=== PATIENT | male | born 1980 | race Caucasian/White ===

== ENCOUNTER 2018-09-15 11:08 | Day surgery (SDC) | payer OTHER, SELFPAY ==
[2018-09-10 07:36] VITALS: BMI 32.5
[2018-09-15 12:10] VITALS: BP 141/88; PULSE 69; RESP 16; TEMP 36.3; O2SAT 99; BMI 32.5
[2018-09-15] MEDS: LACTATED RINGERS 1,000 ML 100 ML IV (12:20)
--- NOTE | 2018-09-15 13:23 | SUR.OPER ---
Lithotomy on padded OR bed, head on pillow, arms secured on padded arm boards at <90 degrees abduction. Legs secured in padded yellow fins stirrups.
--- NOTE | 2018-09-15 14:00 | PM.PREOP ---
Pre-operative Note Interval Note Pre-op Check: Yes History & Physical Reviewed by Physician Changes: No
[2018-09-15] MEDS: levoFLOXacin 500 MG/100 ML PIGGYBACK 100 MG IV (14:05)
[2018-09-15] MEDS: BUPIVACAINE 0.5% (PF) VIAL 30 ML INJ (14:16)
[2018-09-15] MEDS: LIDOCAINE 1% W/EPI INJ 20 ML INJ (14:17)
[2018-09-15] MEDS: DIBUCAINE 1% OINT 28 GM 1 APPLIC TOP (14:19)
--- NOTE | 2018-09-15 14:23 | SUR.OPER ---
GLASSES TO PACU WITH PATIENT
--- NOTE | 2018-09-15 14:38 | PM.OP.1 ---
Operative Date/Time/Diagnoses Date of procedure: 09/15/18 Time of procedure: 14:38 Pre-op diagnosis: Anal fistula Procedure & Clinicians Procedure: Anal fistula associated with a large anal fissure Same procedure as scheduled: Yes Indications: Painful recurrent infection Surgeon: Pilar Decker Click Yes if Unassisted: Yes Anesthesia Type: General (Dr. Jarquin ) and Local Operative Notes Findings: 1. Mildly hypertrophic internal anal sphincter 2. Large anal fissure at 6:00 a.m. in dorsal lithotomy position. 3. The posterior anal fissure communicates with the skin surface externally approximately 1 cm posterior to the fissure itself. This is directly over the painful nodule in the perianal region. Closure Type: not applicable Specimen(s): none sent Estimated Blood Loss (mL): 5 Procedure in detail: After obtaining informed consent, the patient brought to the operating room and placed in supine position on the operating table. Following successful induction of general endotracheal anesthesia, the patient's legs were placed in Paco stirrups to create dorsal lithotomy position. The perianal region was prepped and draped in the standard surgical fashion. A time-out was held per [facility] protocol. A small self retaining anal retractor was placed in the anal canal. This revealed a 1 cm fissure posteriorly. This was probed with a small hemostat and was seen to communicate directly with the painful nodule the patient had previously identified. A small incision was created directly over this nodule and the 2 things connected. This was external to the anal sphincter muscle. It involved only perianal skin and mucosa. The fistulous tract was then opened widely with cautery. The muscle was exposed underneath. This was irrigated, anesthetized with local anesthetic, and the overlying mucosa was closed with chromic suture. The entire area was again anesthetized with local anesthetic. Multiple large internal/external hemorrhoids were noted but they were not prolapsing and would be classified as grade 1 or 2. The wound was checked for hemostasis and irrigated once again with warm saline solution. A rolled portion of Gelfoam coated with dibucaine ointment was placed in the anal canal. The procedure was concluded. All sponge, needle, and instrument counts were correct at the conclusion of the case. The patient was allowed awaken from anesthesia without difficulty and taken to the postanesthesia care unit in good condition. Complications: none Condition: stable Disposition: PACU Plan for aftercare: 1. Discharge to home 2. Follow up with me in my office in 2 weeks.
[2018-09-15 14:42] VITALS: BP 120/79; PULSE 98; RESP 14; TEMP 36.3; O2SAT 98
--- NOTE | 2018-09-15 14:44 | P.OP_ITS ---
Operative Date/Time/Diagnoses Date of procedure: 09/15/18 Time of procedure: 14:38 Pre-op diagnosis: Anal fistula Procedure & Clinicians Procedure: Anal fistula associated with a large anal fissure Same procedure as scheduled: Yes Indications: Painful recurrent infection Surgeon: Pilar Decker Click Yes if Unassisted: Yes Anesthesia Type: General (Dr. Jarquin ) and Local Operative Notes Findings: 1. Mildly hypertrophic internal anal sphincter 2. Large anal fissure at 6:00 a.m. in dorsal lithotomy position. 3. The posterior anal fissure communicates with the skin surface externally approximately 1 cm posterior to the fissure itself. This is directly over the painful nodule in the perianal region. Closure Type: not applicable Specimen(s): none sent Estimated Blood Loss (mL): 5 Procedure in detail: After obtaining informed consent, the patient brought to the operating room and placed in supine position on the operating table. Following successful induction of general endotracheal anesthesia, the patient' s legs were placed in Paco stirrups to create dorsal lithotomy position. The perianal region was prepped and draped in the standard surgical fashion. A time- out was held per [facility] protocol. A small self retaining anal retractor was placed in the anal canal. This revealed a 1 cm fissure posteriorly. This was probed with a small hemostat and was seen to communicate directly with the painful nodule the patient had previously identified. A small incision was created directly over this nodule and the 2 things connected. This was external to the anal sphincter muscle. It involved only perianal skin and mucosa. The fistulous tract was then opened widely with cautery. The muscle was exposed underneath. This was irrigated, anesthetized with local anesthetic, and the overlying mucosa was closed with chromic suture. The entire area was again anesthetized with local anesthetic. Multiple large internal/external hemorrhoids were noted but they were not prolapsing and would be classified as grade 1 or 2. The wound was checked for hemostasis and irrigated once again with warm saline solution. A rolled portion of Gelfoam coated with dibucaine ointment was placed in the anal canal. The procedure was concluded. All sponge, needle, and instrument counts were correct at the conclusion of the case. The patient was allowed awaken from anesthesia without difficulty and taken to the postanesthesia care unit in good condition. Complications: none Condition: stable Disposition: PACU Plan for aftercare: 1. Discharge to home 2. Follow up with me in my office in 2 weeks.
[2018-09-15 14:47] VITALS: BP 156/86; PULSE 84; RESP 16; TEMP 36.3; O2SAT 98
[2018-09-15 14:52] VITALS: BP 158/102; PULSE 89; RESP 18; TEMP 36.6; O2SAT 98
[2018-09-15 15:00] VITALS: BP 149/91; PULSE 99; RESP 20; TEMP 37; O2SAT 99
== END 2018-09-15 15:25 | disposition home or self-care (01) ==
PROVIDERS: PCP Family Medicine; Visit Provider Surgery
PROC: (CPT 45990; principal; 2018-09-15 13:00)
DX: K60.3 Anal fistula (principal); K60.2 Anal fissure, unspecified
CPT/HCPCS: 46270; J1100; J1956; J2704; J3010

== ENCOUNTER → 2019-08-03 15:00 | Oncology outpatient (ONC) | payer OTHER, SELFPAY ==
[2019-07-06 14:21] VITALS: BP 132/80; PULSE 82; RESP 20; TEMP 36.5; O2SAT 98
[2019-07-06 16:07] LABS: HEMOLYSIS < 15 (0-50); Iron 187 ug/dL (49-181)
[2019-07-06 16:09] LABS: Alanine Aminotransferase 50 IU/L (21-72); Albumin Globulin Ratio 1.6 (1.0-2.8); Alkaline Phosphatase 76 U/L (38-126); Aspartate Aminotransferase 52 IU/L (17-59); Bilirubin Total 1.2 mg/dL (0.2-1.3); Blood Urea Nitrogen 20 mg/dL (9-20); Calcium 9.8 mg/dL (8.4-10.2); Carbon Dioxide 22 mmol/L (22-32); Chloride 98 mmol/L (98-107); Estimated Glomerular Filt Rate > 60.0 mL/min (>60); Globulin 3.1 g/dL (1.7-4.1); Glucose 106 mg/dL (70-100); HEMOLYSIS < 15 (0-50); Potassium 4.8 mmol/L (3.4-5.1); Sodium 138 mmol/L (137-145); Total Protein 8.1 g/dL (6.3-8.2)
[2019-07-06 16:18] LABS: Percent Iron Saturation 67 % (20-50); Total Iron Binding Capacity 278 ug/dL (261-462); Transferrin 268 mg/dL (206-381)
[2019-07-06 16:38] LABS: Thyroid Stimulating Hormone 0.72 uIU/mL (0.47-4.68)
--- NOTE | 2019-07-06 17:25 | ONC.CONS ---
History of Present Illness - Data of Consult Consult date: 07/06/19 Primary Care Provider: Oren Barboza MD - Consult Narrative Narrative: Diagnosis: Elevated ferritin History of present illness: Jaden Douglass is a 38 year old male who is referred for further evaluation of an elevated ferritin. The patient is active duty . He has been generally pretty healthy. He has had some recent symptoms of lightheadedness particularly when exercising. He has undergone cardiac evaluation with no obvious etiology found. Part of the evaluation included a ferritin which is been elevated. On a most recent check in April it was 753. Iron was 95 with a TIBC of 325 and a sat of 29%. He had mild elevation in his AST at 54 at that time. ALT was normal at 69. His bilirubin was 1.1. His white count was 5.3 hemoglobin 13.5 hematocrit 39.6 and platelets were 186,000. He did have HF E testing done. 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 He was scheduled for cardiac MRI but was unable to lie still in the machine because of claustrophobia. He has no known history of liver disease but has been a heavy drinker in the past. He currently has cut back on his alcohol consumption but does still drink occasionally. He has no known history of hepatitis. He has not had any documented cardiac disease. There has been no history of diabetes arthritis or hypothyroidism or hypogonadism. He has never required a blood transfusion. He had been a blood donor but has not donated in the last 5-10 years. He has not been taking any oral iron. There is no family history of hemochromatosis. His past medical history is otherwise notable for gout, acid reflux, hypertension and hyperlipidemia. He did have surgery about a year ago for rectal fistula or abscess. He has also recently been diagnosed with sleep apnea. Family history is negative for hemochromatosis. Social history: He is . He disease active duty . 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 He does not have any exposure to lead or organic solvents. Does not smoke but does drink some alcohol. He has some anxiety relating to his upcoming senior care from the in about a year. CC: Anders Tejada MD Home Medications and Allergies Home Medications Medication Instructions Recorded Confirmed Type amlodipine 2.5 mg tablet 5 mg PO DAILY 09/09/18 07/06/19 History atorvastatin 20 mg PO DAILY 09/09/18 07/06/19 History lisinopril 40 mg PO DAILY 09/09/18 07/06/19 History metoprolol tartrate 50 mg PO DAILY 09/09/18 07/06/19 History ranitidine HCl 150 mg PO BID 09/09/18 07/06/19 History Allergies Allergy/AdvReac Type Severity Reaction Status Date / Time No Known Drug Allergies Allergy Verified 11/16/18 09:31 Medical History - Medical, Surgical, Family History Medical History: Medical History (Last Reviewed 01/20/19 @ 17:27 by Pilar Decker MD) Anal lesion Gout HTN (hypertension) Surgical History: Surgical History (Last Reviewed 01/20/19 @ 17:27 by Pilar Decker MD) History of appendectomy - Social History Smoking Status: Never smoker Review of Systems Constitutional: able to conduct usual activities Ears, nose, mouth, throat: lightheadedness Cardiovascular: no chest pain, no palpitations Hematologic/Lymphatic: no enlarged lymph nodes Exam Vital signs: Vital Signs Temp Pulse Resp BP Pulse Ox 07/06/19 14:21 97.7 F 82 20 132/80 98 Intake and Output 07/06/19 07/06/19 07/06/19 07:59 15:59 23:59 Other: Weight 114 kg Patient Weight 07/06/19 23:59 Weight 114 kg - Constitutional positive no acute distress, positive average body habitus - Routine HEENT Exam Head: Present: normocephalic, atraumatic Eye: Present: EOMI, PERRL. Absent: conjunctival icterus, scleral injection ENT: Present: mucous membranes moist, oropharynx clear, dentition normal - Routine Neck Exam Present: supple. Absent: lymphadenopathy, thyromegaly - Routine Chest/Breast/Axilla Exam Axillae: Absent: lymphadenopathy - Routine Respiratory Exam Present: Clear to auscultation bilaterally. Absent: rales, wheezes - Routine Cardiovascular Exam Present: RRR, S1, S2. Absent: murmur - Routine Abdominal Exam Present: soft, normoactive bowel sounds. Absent: tenderness, mass Comments: The liver edge is palpable 3-4 finger breaths below the costal margin. - Routine Extremities Exam Absent: cyanosis, clubbing, edema - Routine Back/Spine Exam Back/Spine: Absent: vertebral tenderness - Routine Skin Exam Present: intact. Absent: petechiae, rash - Routine Neurological Exam Present: alert, oriented X3 - Routine Psychiatric Exam Present: normal affect, normal thought process Results - Labs Laboratory Last Values Sodium 138 mmol/L (137-145) 07/06/19 15:18 Potassium 4.8 mmol/L (3.4-5.1) 07/06/19 15:18 Chloride 98 mmol/L (98-107) 07/06/19 15:18 Carbon Dioxide 22 mmol/L (22-32) 07/06/19 15:18 BUN 20 mg/dL (9-20) 07/06/19 15:18 Creatinine 1.00 mg/dL (0.66-1.25) 07/06/19 15:18 Estimated GFR > 60.0 mL/min (>60) 07/06/19 15:18 BUN/Creatinine Ratio 20.0 (6-22) 07/06/19 15:18 Glucose 106 mg/dL (70-100) H 07/06/19 15:18 Calcium 9.8 mg/dL (8.4-10.2) 07/06/19 15:18 Iron 187 ug/dL (49-181) H 07/06/19 15:18 TIBC 278 ug/dL (261-462) 07/06/19 15:18 % Saturation 67 % (20-50) H 07/06/19 15:18 Transferrin 268 mg/dL (206-381) 07/06/19 15:18 Ferritin 743.0 ng/mL (17.9-464) H 07/06/19 15:18 Total Bilirubin 1.2 mg/dL (0.2-1.3) 07/06/19 15:18 AST 52 IU/L (17-59) 07/06/19 15:18 ALT 50 IU/L (21-72) 07/06/19 15:18 Alkaline Phosphatase 76 U/L (38-126) 07/06/19 15:18 Total Protein 8.1 g/dL (6.3-8.2) 07/06/19 15:18 Albumin 5.0 g/dL (3.5-5.0) 07/06/19 15:18 Globulin 3.1 g/dL (1.7-4.1) 07/06/19 15:18 Albumin/Globulin Ratio 1.6 (1.0-2.8) 07/06/19 15:18 TSH 0.72 uIU/mL (0.47-4.68) 07/06/19 15:18 Testosterone Level 253.0 ng/dL (132-813) 07/06/19 15:18 Assessment and Plan (1) Abnormal finding Current visit: Yes Status: Acute This is a 38-year-old man with an elevated ferritin but heterozygous HFE mutation. It is very unusual for heterozygous HFE carriers to develop clinically evident iron overload. In addition, at least on average there iron levels are similar to wild-type HFE patients. I think it is possible that he may have iron overload from nonHFE hemochromatosis. Alternatively, he could have an elevated ferritin in the absence of iron overload for other reasons. This typically would include inflammation or liver disease. Hepatitis can be associated with an elevated ferritin. Alcoholic liver disease and nonalcoholic steatohepatitis also have been associated. I think the next step would be to evaluate for iron overload. This could be done either with MRI or liver biopsy. It has been difficult for him to hold still in the MRI machine because of claustrophobia. I think it may be reasonable therefore to refer him to a web operations lead for further evaluation and consideration of liver biopsy. If the patient does have iron overload confirmed, he should start on a phlebotomy program regardless of the cause. If there is no iron overload, then I think treatment directed at his underlying liver disease of present would be indicated. If no underlying disease is found, then on only ongoing observation.
[2019-08-03 15:46] VITALS: BP 113/66; PULSE 79; RESP 18; TEMP 36.8; O2SAT 98
--- NOTE | 2019-08-03 16:21 | P.PNONC_ITS ---
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 He was seen here initially about a month ago. He was found to have an elevated serum ferritin. His genetic testing for H at fee revealed that he was a carrier for this C282Y mutation. He was referred for cardiac MRI to evaluate for iron load but was unable to lie still for the machine despite premedication with Valium. Since his last visit here, he has been feeling generally well and has no specific complaints. He denies any unusual bleeding or bruising. No fevers chills or sweats. Appetite and energy level have been stable. He has not had any new aches or pains. He denies any other changes in his health both. His past medical history is otherwise notable for gout, acid reflux, hypertension and hyperlipidemia. He did have surgery about a year ago for rectal fistula or abscess. He has also recently been diagnosed with sleep apnea. Family history is negative for hemochromatosis. - Patient Self-Reported Symptoms SR Constitution: Weight loss/gain, Fatigue/Malaise SR ears, nose, mouth, throat issues: Ears ringing, Hoarseness SR Cardiovascular issues: Dizzy/lightheaded SR Skin issues: Nail changes SR Genitourinary issues: Frequent urination, Change in stream SR Musculoskeletal issues: Joint pain or swelling, Muscle pain or cramps, Cold hands or feet SR Neuro issues: Lightheaded/dizzy, Numbness or tingling SR Hematologic issues: Slow healing, Bleeding/bruising Home Medications and Allergies Home Medications Medication Instructions Recorded Confirmed Type amlodipine 2.5 mg tablet 5 mg PO DAILY 09/09/18 07/06/19 History atorvastatin 20 mg PO DAILY 09/09/18 07/06/19 History lisinopril 40 mg PO DAILY 09/09/18 07/06/19 History metoprolol tartrate 50 mg PO DAILY 09/09/18 07/06/19 History ranitidine HCl 150 mg PO BID 09/09/18 07/06/19 History Allergies Allergy/AdvReac Type Severity Reaction Status Date / Time No Known Drug Allergies Allergy Verified 11/16/18 09:31 Exam Vital signs: Vital Signs Temp Pulse Resp BP Pulse Ox 08/03/19 15:46 98.3 F 79 18 113/66 98 Intake and Output 08/03/19 08/03/19 08/03/19 07:59 15:59 23:59 Other: Weight 114 kg Patient Weight 08/03/19 23:59 Weight 114 kg - Constitutional positive no acute distress, positive average body habitus - Routine HEENT Exam Head: Present: normocephalic, atraumatic Eye: Present: EOMI, PERRL. Absent: conjunctival icterus, scleral injection ENT: Present: mucous membranes moist, oropharynx clear - Routine Neck Exam Present: supple. Absent: lymphadenopathy, thyromegaly - Routine Respiratory Exam Present: Clear to auscultation bilaterally. Absent: rales, wheezes - Routine Cardiovascular Exam Present: RRR, S1, S2. Absent: murmur - Routine Abdominal Exam Present: soft, normoactive bowel sounds. Absent: tenderness, organomegaly, mass - Routine Extremities Exam Absent: cyanosis, clubbing, edema - Routine Back/Spine Exam Back/Spine: Absent: vertebral tenderness - Routine Skin Exam Present: intact. Absent: petechiae, rash - Routine Neurological Exam Present: alert, oriented X3 - Routine Psychiatric Exam Present: normal affect, normal thought process Results - Labs Laboratory Last Values Sodium 138 mmol/L (137-145) 07/06/19 15:18 Potassium 4.8 mmol/L (3.4-5.1) 07/06/19 15:18 Chloride 98 mmol/L (98-107) 07/06/19 15:18 Carbon Dioxide 22 mmol/L (22-32) 07/06/19 15:18 BUN 20 mg/dL (9-20) 07/06/19 15:18 Creatinine 1.00 mg/dL (0.66-1.25) 07/06/19 15:18 Estimated GFR > 60.0 mL/min (>60) 07/06/19 15:18 BUN/Creatinine Ratio 20.0 (6-22) 07/06/19 15:18 Glucose 106 mg/dL (70-100) H 07/06/19 15:18 Calcium 9.8 mg/dL (8.4-10.2) 07/06/19 15:18 Iron 187 ug/dL (49-181) H 07/06/19 15:18 TIBC 278 ug/dL (261-462) 07/06/19 15:18 % Saturation 67 % (20-50) H 07/06/19 15:18 Transferrin 268 mg/dL (206-381) 07/06/19 15:18 Ferritin 743.0 ng/mL (17.9-464) H 07/06/19 15:18 Total Bilirubin 1.2 mg/dL (0.2-1.3) 07/06/19 15:18 AST 52 IU/L (17-59) 07/06/19 15:18 ALT 50 IU/L (21-72) 07/06/19 15:18 Alkaline Phosphatase 76 U/L (38-126) 07/06/19 15:18 Total Protein 8.1 g/dL (6.3-8.2) 07/06/19 15:18 Albumin 5.0 g/dL (3.5-5.0) 07/06/19 15:18 Globulin 3.1 g/dL (1.7-4.1) 07/06/19 15:18 Albumin/Globulin Ratio 1.6 (1.0-2.8) 07/06/19 15:18 TSH 0.72 uIU/mL (0.47-4.68) 07/06/19 15:18 Testosterone Level 253.0 ng/dL (132-813) 07/06/19 15:18 Assessment and Plan (1) Abnormal finding Current visit: Yes Status: Acute This is a 38-year-old man with an elevated ferritin but heterozygous HFE mutation. It is very unusual for heterozygous HFE carriers to develop clinically evident iron overload. In addition, at least on average there iron levels are similar to wild-type HFE patients. I think it is possible that he may have iron overload from nonHFE hemochromatosis. Alternatively, he could have an elevated ferritin in the absence of iron overload for other reasons. This typically would include inflammation or liver disease. Hepatitis can be associated with an elevated ferritin. Alcoholic liver disease and nonalcoholic steatohepatitis also have been associated. I think the next step would be to evaluate for iron overload. This could be done either with MRI or liver biopsy. It has been difficult for him to hold still in the MRI machine because of claustrophobia. I think it may be reasonable therefore to refer him to a inspection engineer for further evaluation and consideration of liver biopsy. If the patient does have iron overload confirmed, he should start on a phlebotomy program regardless of the cause. If there is no iron overload, then I think treatment directed at his underlying liver disease of present would be indicated. If no underlying disease is found, then on only ongoing observation. I did make a referral to Gastroenterology for him. Will have him return to clinic here after that is complete.
--- NOTE | 2019-08-08 14:55 | ONC.SCHED ---
Left ms. for patient letting him know I submitted the auth through for him to see a GI doctor. I mentioned it might help for him to give his insurance or primary doctor a call.
== END ==
PROVIDERS: PCP Family Medicine
DX: R79.89 Other specified abnormal findings of blood chemistry (principal); K21.9 Gastro-esophageal reflux disease without esophagitis; I10 Essential (primary) hypertension; E78.5 Hyperlipidemia, unspecified; G47.30 Sleep apnea, unspecified; Z14.8 Genetic carrier of other disease
CPT/HCPCS: 36415; 80053; 82728; 83540; 83550; 84403; 84443; 99205; 99214; 99215

== ENCOUNTER → 2020-06-30 08:27 | Outpatient (CLI) | payer OTHER, SELFPAY ==
[2020-07-01 19:05] LABS: COVID19 Sendout Not Detected (Not Detect)
== END ==
PROVIDERS: PCP Family Medicine; Visit Provider Nurse Practitioner
DX: Z11.59 Encounter for screening for other viral diseases (principal)
CPT/HCPCS: 87635

== ENCOUNTER 2020-07-03 11:10 | Day surgery (SDC) | payer OTHER, SELFPAY ==
[2020-06-28 15:20] VITALS: BMI 33.8
[2020-07-03] VITALS (7 sets, daily range): BP systolic 112–142; BP diastolic 51–88; PULSE 68–87; RESP 11–20; TEMP 36.6–36.9; O2SAT 95–98; BMI 33.8
[2020-07-03] MEDS: LACTATED RINGERS 1,000 ML 42 ML IV (11:51)
--- NOTE | 2020-07-03 13:09 | PM.PREOP ---
Pre-operative Note COVID-19 COVID-19 status: Negative Interval Note History & Physical reviewed/Exam performed by Physician: Yes Changes to H&P: No
--- NOTE | 2020-07-03 13:41 | SUR.OPER ---
Lithotomy on padded OR bed, head on pillow, arms secured on padded arm boards at <90 degrees abduction. Legs secured in padded yellow fins stirrups.
[2020-07-03] MEDS: BUPIVACAINE 0.25% (PF) VIAL 30 ML INJ (13:46)
--- NOTE | 2020-07-03 14:09 | P.OP_ITS ---
Operative Date/Time/Diagnoses Date of procedure: 07/03/20 Time of procedure: 14:09 Pre-op diagnosis: intersphincteric fistula Post-op diagnosis: same Procedure & Clinicians Procedure: fistulotomy Same procedure as scheduled: Yes Indications: 39M had a prior fistulotomy and perianal abscess presented with chronic perianal drainange. T Surgeon: Ant Winter Click Yes if Unassisted: Yes Anesthesia Type: General Operative Notes Findings: posterior perianal abscess and interspincteric fistula Specimen(s): none sent Estimated Blood Loss (mL): 10 Procedure in detail: The patient was brought to the operating room and placed supine on the table. Bilateral lower extremity compression devices were saqib lied. He was intubated with an LMA. Time-out was performed. He was placed lithotomy and appropriately padded. He was prepped and draped in usual fashion. A rectal block was performed by injecting 20 ml of 0.25% bupivicaine in the interspincteric groove. An examination was performed that demonstrated a posterior chronic perianal abscess at the 6 o clock position in lithotomy in the perianal skin. Using the lacrimal duct probe it was introduced into the abscess cavity which was in the interspincteric groove and it tracked directly into the anal canal an exited at approximately the dentate line. I performed a simple fistulomy using the Bovie to divide the tissue superficial to the lacrimal probe. Hemostasis was achieved. He emerged from anesthesia and was transferred to the recovery room in stable condition. Complications: none Post-operative Condition: stable Disposition: same day surgery
[2020-07-03] MEDS: OXYCODONE IR 5 MG TABLET PO (14:22)
== END 2020-07-03 15:00 | disposition home or self-care (01) ==
PROVIDERS: Referring Provider Surgery; Visit Provider Surgery
PROC: (CPT 45990; principal; 2020-07-03 12:45)
DX: K61.4 Intrasphincteric abscess (principal); K21.9 Gastro-esophageal reflux disease without esophagitis; I10 Essential (primary) hypertension; E78.00 Pure hypercholesterolemia, unspecified
CPT/HCPCS: 46275; J1100; J2250; J2405; J2704; J3010

== ENCOUNTER → 2021-10-30 14:17 | Outpatient (CLI) | payer OTHER, SELFPAY ==
--- NOTE | 2021-10-30 14:19 | DI.ECHO.S_ITS ---
[facility] +---------+ : : [address] : [place] [address] : : : : [id number] : : : : Phone: [phone] Echocardiogram Report + + :Name: SAGAR ORTIZ Study Date: 10/30/2021 Height: 71 in : :[facility] ReadingLocation: Weight: 230 lb : : Gender: Male BSA: 2.2 m2 : :: 1980 Age: 41 yrs BP: 160/92 mmHg: :Reason For Study: GENERAL ADULT MEDICAL EXAMINATION : :Ordering Physician: HOMERO, : :TAMRA Performed By: Latisha Sanabria : :Referring: TAMRA VALENTIN : + + Interpretation Summary The ejection fraction is estimated to be 55-60%. There are no obvious focal wall motion abnormalities noted but poor endocardial definition reduces the sensitivity for the detection of such. There is mild tricuspid regurgitation. The right ventricular systolic pressure is estimated to be at least 37 mmHg based on an estimated right atrial pressure of 3 mm Hg. Procedure: A two-dimensional transthoracic echocardiogram with color flow and Doppler was performed. The study quality was technically adequate. There is no prior echocardiogram noted for this patient. The patient was in sinus rhythm with heart rates between 73-89 bpm during the exam. Left Ventricle: The left ventricle is normal in size. There is mild concentric left ventricular hypertrophy. The ejection fraction is estimated to be 55-60%. There are no obvious focal wall motion abnormalities noted but poor endocardial definition reduces the sensitivity for the detection of such. Diastolic parameters suggest a pseudonormalization pattern, consistent with probable elevated filling pressures. Right Ventricle: The right ventricle is mildly dilated. The right ventricular systolic function is normal. Atria: The left atrium is severely dilated. Right atrial size is normal. There is no Doppler evidence for an interatrial shunt. Mitral Valve: The mitral valve is normal in structure and function. There is mild mitral annular calcification. There is trace mitral regurgitation. Aortic Valve: The aortic valve is trileaflet. The aortic valve opens well. There is no aortic valve stenosis. There is no aortic regurgitation. Tricuspid Valve: The tricuspid valve is normal in structure and function. There is mild tricuspid regurgitation. The right ventricular systolic pressure is estimated to be at least 37 mmHg based on an estimated right atrial pressure of 3 mm Hg. Pulmonic Valve: The pulmonic valve leaflets are thin and pliable; valve motion is normal. There is no pulmonic valvular regurgitation. Great Vessels: The aortic root is normal size. The ascending aorta is mildly enlarged. The IVC is of normal diameter and collapses greater than 50% with a sniff. This suggests a low right atrial pressure of 3 mm Hg. Pericardium/ Pleura There is no pericardial effusion. There is no pleural effusion. MMode/2D Measurements & Calculations LVIDd: 4.5 cm LVOT diam: 2.5 cm LVIDs: 3.1 cm Ao root diam: 3.3 cm FS: 30.8 % asc Aorta Diam: 3.8 cm IVSd: 1.3 cm Ao Arch Diam (Prox Trans): 2.6 cm LVPWd: 1.1 cm LV mittal. diameter/BSA (cm/m^2): 2.0 LV sys. diameter/BSA (cm/m^2): 1.4 LA A2 area: 27.1 cm2 RA long axis: 4.9 cm LA A4 area: 27.9 cm2 RA area: 17.1 cm2 LA length (vol): 5.9 cm RA vol: 51.0 ml LA vol: 107.8 ml RA : 22.8 ml/m2 LA vol index: 48.2 ml/m2 IVC diam: 1.8 cm RVD1 (basal): 4.5 cm TAPSE: 2.5 cm Doppler Measurements & Calculations Ao V2 max: 138.8 cm/sec LVOT Max Diego: 112.6 cm/sec Ao V2 mean: 88.0 cm/sec LV V1 max P.1 mmHg Ao max P.7 mmHg LV V1 VTI: 22.5 cm Ao mean P.6 mmHg RON(I,D): 4.1 cm2 Ao V2 VTI: 25.9 cm RON(V,D): 3.9 cm2 sev ratio: 0.87 RON indexed to BSA (cm^2/m^2): 1.8 MV E max diego: 93.7 cm/sec TR max diego: 289.2 cm/sec MV A max diego: 51.6 cm/sec TR max P.5 mmHg MV E/A: 1.8 PA V2 max: 118.3 cm/sec Med Peak E' Diego: 11.0 cm/sec PA V2 mean: 82.3 cm/sec E/E' med: 8.5 PA mean P.0 mmHg Lat Peak E' Diego: 17.1 cm/sec E/E' lat: 5.5 E/e' average: 7.0 MV dec time: 0.21 sec SV(LVOT): 106.8 ml Reading Physician:04:41 PM
== END ==
PROVIDERS: PCP Student in an Organized Health Care Education/Training Program; Referring Provider Physician Assistant; Visit Provider Physician Assistant
DX: I07.1 Rheumatic tricuspid insufficiency (principal); I77.89 Other specified disorders of arteries and arterioles
CPT/HCPCS: 93306

== ENCOUNTER 2022-05-16 10:21 | Emergency (ER) | payer OTHER, SELFPAY ==
--- NOTE | 2022-05-16 | DI.US.S_ITS ---
PROCEDURE: US ABDOMEN COMPLETE INDICATIONS: elevated bili and new renal failure TECHNIQUE: Real-time scanning was performed of the abdominal and retroperitoneal organs, with image documentation. COMPARISON: None. FINDINGS: Liver: The liver measures 19 cm in length and demonstrates increased echogenicity throughout. Gallbladder: The gallbladder wall measures 1.7 mm in diameter. No stones, sludge, pericholecystic fluid, or sonographic Bella sign. Biliary ducts: Intrahepatic bile ducts are non-dilated. Extrahepatic bile duct caliber measures 5.3 mm. Normal is 6-7 mm or less in diameter, or 10 mm or less post-cholecystectomy. Pancreas: Visualized portions of the pancreas are sonographically normal. Spleen: Spleen is normal in size and homogeneous in echotexture. Kidneys: Kidneys are normal in size and echotexture. Right kidney measures 12.4 cm long; left kidney measures 12.6 cm long. No hydronephrosis or nephrolithiasis. No solid masses. Aorta: Visualized aorta is normal in caliber at less than 3 cm. The distal aorta is not visualized due to bowel gas. Iliacs: The iliacs are not visualized due to bowel gas. IVC: Intrahepatic inferior vena cava is patent. Miscellaneous: No free abdominal fluid. IMPRESSION: 1. Increased hepatic echogenicity noted likely related to fatty infiltration of the liver but other sources of hepatocellular disease cannot be excluded. 2. No cholelithiasis or findings to suggest choledocholithiasis or acute cholecystitis. Dictated by: Heather Banda M.D. on 05/16/2022 at 15:21 Approved by: Heather Banda M.D. on 05/16/2022 at 15:22
[2022-05-16 10:25] VITALS: BP 122/71; PULSE 84; RESP 14; TEMP 35.7; O2SAT 99; BMI 36.2
--- NOTE | 2022-05-16 11:44 | ED.ALCOHOL ---
HPI - Alcohol General Chief Complaint: Toxicology Problem Stated Complaint: ETOH withdrawal Time Seen by Provider: 05/16/22 11:27 Source: patient Mode of arrival: Ambulatory History of Present Illness HPI narrative: Patient is a 41-year-old male who has a history of hypertension hyperlipidemia and alcohol abuse. He states he has ongoing alcohol issues for 20 years. He has been sober intermittently. The last sober November for 4-6 weeks. He was given prescription for Ativan and Zofran as outpatient. He says he drinks large amounts of hard alcohol. His last drink about 48 hours ago. He has previously had alcohol withdrawal seizures. He feels very shaky and anxious but is not tachycardic. He is feeling slightly nauseous but okay. He is not interested in going to detox today. He would just like medications so he can detox at home. He has tried outpatient support group such as [facility] without any 6 he denies any other drug use. Related Data Home Medications Medication Instructions Recorded Confirmed amlodipine 2.5 mg tablet 5 mg PO DAILY 09/09/18 08/01/20 atorvastatin 20 mg PO DAILY 09/09/18 08/01/20 lisinopril 40 mg PO DAILY 09/09/18 08/01/20 metoprolol tartrate 50 mg PO DAILY 09/09/18 08/01/20 allopurinol 100 mg tablet 300 mg PO DAILY 06/20/20 08/01/20 Previous Rx's Medication Instructions Recorded docusate sodium 100 mg capsule 100 mg PO BID #40 caps 07/03/20 (Colace) oxycodone 5 mg tablet 5 mg PO Q6H PRN pain #30 tabs 07/03/20 lorazepam 1 mg tablet (Ativan) 1 mg PO TID PRN alcohol withdrawal 05/16/22 #12 tabs Allergies Allergy/AdvReac Type Severity Reaction Status Date / Time No Known Drug Allergies Allergy Verified 05/16/22 10:25 Review of Systems Review of Systems Narrative: GENERAL: Denies chills, fatigue, malaise, fever, sweats, travel HEENT: Denies sinus pain, ear pain, sore throat, difficulty swallowing, neck pain RESPIRATORY: Denies dyspnea, cough, wheezing, hemoptysis, sputum. CARDIOVASCULAR: Denies chest pain, palpitations, orthopnea, edema GASTROINTESTINAL: Denies nausea, vomiting, abdominal pain, diarrhea, constipation, melena. : Denies dysuria, frequency, incontinence, hematuria, urinary retention, flank pain. MUSCULOSKELETAL: Denies weakness, joint pain, or bony pain SKIN: No rash, no erythema, no pruritus NEUROLOGIC: Denies weakness, dizziness, headache, numbness, change in speech, confusion PSYCHIATRIC: See HPI 12 point review of systems is negative except for those stated above and HPI Patient History Medical History Anal lesion Elevated ferritin GERD (gastroesophageal reflux disease) Gout HTN (hypertension) Hypercholesteremia Sleep apnea Surgical History History of appendectomy History of surgery (09/15/18) Hx of wisdom tooth extraction Family History Mother Hypertension Social History marital status: household members: spouse occupational status: employed Smoking Status: Never smoker alcohol intake: current substance use type: does not use Smoking Status: Never smoker alcohol intake frequency: 3 or more drinks per day Alcohol type: hard liquor Substance Use Type: does not use Exam Initial Vital Signs Initial Vital Signs: Vital Signs Temperature 96.2 F L 05/16/22 10:25 Pulse Rate 84 05/16/22 10:25 Respiratory Rate 14 05/16/22 10:25 Blood Pressure 122/71 05/16/22 10:25 Pulse Oximetry 99 05/16/22 10:25 Oxygen Delivery Method 05/16/22 10:25 GENERAL: Alert pleasant 41-year-old male and in no acute distress. HEENT: Head atraumatic,EOMI, pupils reactive, face symmetric, moist mucous membranes CARDIOVASCULAR: Regular rate and rhythm without murmurs, rubs or gallops. RESPIRATORY: Breath sounds equal bilaterally, no wheezes rales or rhonchi. ABDOMEN: Soft, nontender. Normoactive bowel sounds all 4 quadrants. No guarding or rebound. EXTREMITIES: Normal range of motion, no clubbing or edema. Neurovascularly intact NEUROLOGICAL: Alert and oriented x4.Normal gait and speech. No deficits, minimal resting tremor SKIN: Warm, dry, no laceration, no petechiae, no rashes or lesions. Course Orders Ordered: ED Orders 05/16/22 11:00 Urine Drug Screen, Rapid Stat Urine Microscopic Stat 05/16/22 11:25 Acetaminophen Stat Complete Blood Count AUTO DIFF Stat Comprehensive Metabolic Panel Stat Ethanol (ETOH) Stat Salicylate Stat Thyroid Stimulating Hormone Stat 05/16/22 12:07 Consult to [facility] - Waist Pleater Stat Discontinued Medications Diazepam (Diazepam 10 Mg/2 Ml Syringe) 2 mg IV NOW ONE Stop: 05/16/22 14:16 Last Admin: 05/16/22 14:35 Dose: 2 mg Documented By: AT Lorazepam (Lorazepam 2 Mg/Ml Inj) 1 mg IV NOW ONE Stop: 05/16/22 13:34 Last Admin: 05/16/22 13:47 Dose: Not Given Documented By: AT Phenobarbital (Phenobarbital 65 Mg/Ml Vial) 260 mg IV NOW ONE Stop: 05/16/22 11:46 Last Admin: 05/16/22 11:51 Dose: 260 mg Documented By: KB Vital Signs Vital signs: Vital Signs - 8 hr 05/16/22 14:37 05/16/22 16:07 Pulse Rate 65 70 Respiratory Rate 20 20 Blood Pressure 121/61 123/70 Pulse Oximetry 99 99 Oxygen Delivery Method Room Air Room Air MDM - Alcohol Lab Data Result diagrams: 05/16/22 11:25 05/16/22 11:25 Labs: Lab Results 05/16/22 05/16/22 05/16/22 Range/Units 11:00 11:00 11:25 WBC 3.9 L (4.5-11.0) X10^3/uL RBC 2.79 L (4.5-5.9) X10^6/uL Hgb 9.5 L (13.5-17.5) g/dL Hct 27.6 L (41-53) % MCV 98.7 (80-100) fL MCH 33.9 (26-34) PG MCHC 34.3 (30-36) % RDW 14.2 (11.6-14.8) % Plt Count 83 L (150-400) X10^3/uL Neut % (Auto) 61.0 (50-75) % Lymph % (Auto) 26.2 (25-40) % Rich % (Auto) 11.2 (3-14) % Eos % (Auto) 1.2 L (2-4) % Baso % (Auto) 0.4 (0-2) % Neut # (Auto) 2400 (2060-1125) /uL Lymph # (Auto) 1000 L (3114-4802) /uL Rich # (Auto) 400 (0-900) /uL Eos # (Auto) 0 (0-450) /uL Baso # (Auto) 0 (0-100) /uL Sodium (137-145) mmol/L Potassium (3.4-5.1) mmol/L Chloride (98-107) mmol/L Carbon Dioxide (22-32) mmol/L BUN (9-20) mg/dL Creatinine (0.66-1.25) mg/dL Estimated GFR (>60) mL/min BUN/Creatinine Ratio (6-22) Glucose (70-100) mg/dL Calcium (8.4-10.2) mg/dL Total Bilirubin (0.2-1.3) mg/dL AST (17-59) IU/L ALT (<50) IU/L Alkaline Phosphatase (38-126) U/L Total Protein (6.3-8.2) g/dL Albumin (3.5-5.0) g/dL Globulin (1.7-4.1) g/dL Albumin/Globulin Ratio (1.0-2.8) TSH (0.47-4.68) uIU/mL Free T4 Urine RBC None seen (0-5/HPF) Urine WBC None seen (0-5/HPF) Ur Squamous Epith Cells 1-5 /hpf (0-5/HPF) Urine Bacteria None seen (None) Ur Culture Indicated? Cult not indicated Salicylates (<20) mg/dL U Opiates 300ng/mL cut Negative (Negative) Ur Oxycodone Screen Negative (Negative) Urine Methadone Screen Negative (Negative) Acetaminophen (10-30) ug/mL Ur Barbiturates Screen Negative (Negative) U Tricyclic Antidepress Negative (Negative) Ur Phencyclidine Scrn Negative (Negative) Ur Amphetamines Screen Negative (Negative) U Methamphetamines Scrn Negative (Negative) Ur MDMA Scrn (Ecstasy) Negative (Negative) U Benzodiazepines Scrn Positive H (Negative) Urine Cocaine Screen Negative (Negative) U Marijuana (THC) Screen Negative (Negative) Ethyl Alcohol ( - 10) mg/dL 05/16/22 05/16/22 Range/Units 11:25 11:25 WBC (4.5-11.0) X10^3/uL RBC (4.5-5.9) X10^6/uL Hgb (13.5-17.5) g/dL Hct (41-53) % MCV (80-100) fL MCH (26-34) PG MCHC (30-36) % RDW (11.6-14.8) % Plt Count (150-400) X10^3/uL Neut % (Auto) (50-75) % Lymph % (Auto) (25-40) % Rich % (Auto) (3-14) % Eos % (Auto) (2-4) % Baso % (Auto) (0-2) % Neut # (Auto) (6415-5001) /uL Lymph # (Auto) (4956-0774) /uL Rich # (Auto) (0-900) /uL Eos # (Auto) (0-450) /uL Baso # (Auto) (0-100) /uL Sodium 136 L (137-145) mmol/L Potassium 4.8 (3.4-5.1) mmol/L Chloride 105 (98-107) mmol/L Carbon Dioxide 18 L (22-32) mmol/L BUN 46 H (9-20) mg/dL Creatinine 2.24 H (0.66-1.25) mg/dL Estimated GFR 36 L (>60) mL/min BUN/Creatinine Ratio 20.5 (6-22) Glucose 169 H (70-100) mg/dL Calcium 9.0 (8.4-10.2) mg/dL Total Bilirubin 1.4 H (0.2-1.3) mg/dL AST 150 H (17-59) IU/L ALT 90 H (<50) IU/L Alkaline Phosphatase 59 (38-126) U/L Total Protein 7.4 (6.3-8.2) g/dL Albumin 4.7 (3.5-5.0) g/dL Globulin 2.7 (1.7-4.1) g/dL Albumin/Globulin Ratio 1.7 (1.0-2.8) TSH 1.10 (0.47-4.68) uIU/mL Free T4 Cancelled Urine RBC (0-5/HPF) Urine WBC (0-5/HPF) Ur Squamous Epith Cells (0-5/HPF) Urine Bacteria (None) Ur Culture Indicated? Salicylates < 1.0 (<20) mg/dL U Opiates 300ng/mL cut (Negative) Ur Oxycodone Screen (Negative) Urine Methadone Screen (Negative) Acetaminophen < 10 (10-30) ug/mL Ur Barbiturates Screen (Negative) U Tricyclic Antidepress (Negative) Ur Phencyclidine Scrn (Negative) Ur Amphetamines Screen (Negative) U Methamphetamines Scrn (Negative) Ur MDMA Scrn (Ecstasy) (Negative) U Benzodiazepines Scrn (Negative) Urine Cocaine Screen (Negative) U Marijuana (THC) Screen (Negative) Ethyl Alcohol < 10 ( - 10) mg/dL Urine Dip Bedside Urine Glucose 1000 mg/dl Bedside Urine Bilirubin - Negative Bedside Urine Ketone - Negative Urine Specific [place] 1.025 Bedside Urine Occult Blood - Negative Bedside Urine pH 6.0 Bedside Urine Protein + 30 Bedside Urine Urobilinogen - Negative Bedside Urine Nitrite - Negative Bedside Urine Leukocytes - Negative Esterase Imaging Data US - abdomen: Radiologist's Impressoin: [place] [id number] Ultrasound Report Signed Patient: Jaden Douglass MR#: [id number] : 1980 Acct:[id number] Age/Sex: 41 / M Date of Service: 05/16/22 Loc: ED Accession Number: [id number] ?? Procedure: US abdomen complete Ordering Provider: Rose Titus D.O. PROCEDURE:? US ABDOMEN COMPLETE ? INDICATIONS:? elevated bili and new renal failure ? TECHNIQUE:? Real-time scanning was performed of the abdominal and retroperitoneal organs, with image documentation.? ? COMPARISON:? None. ? FINDINGS:? ? Liver:? The liver measures 19 cm in length and demonstrates increased echogenicity throughout. ? Gallbladder:? The gallbladder wall measures 1.7 mm in diameter. No stones, sludge, pericholecystic fluid, or sonographic Bella sign. ? ? Biliary ducts:? Intrahepatic bile ducts are non-dilated.? Extrahepatic bile duct caliber measures 5.3 mm.? Normal is 6-7 mm or less in diameter, or 10 mm or less post-cholecystectomy.? ? Pancreas:? Visualized portions of the pancreas are sonographically normal.? ? Spleen:? Spleen is normal in size and homogeneous in echotexture.? ? Kidneys:? Kidneys are normal in size and echotexture.? Right kidney measures 12.4 cm long; left kidney measures 12.6 cm long.? No hydronephrosis or nephrolithiasis.? No solid masses.? ? Aorta:? Visualized aorta is normal in caliber at less than 3 cm.? The distal aorta is not visualized due to bowel gas. ? Iliacs:? The iliacs are not visualized due to bowel gas. ? IVC:? Intrahepatic inferior vena cava is patent.? ? Miscellaneous:? No free abdominal fluid.? ? ? IMPRESSION:? ? 1. Increased hepatic echogenicity noted likely related to fatty infiltration of the liver but other sources of hepatocellular disease cannot be excluded.? ? 2. No cholelithiasis or findings to suggest choledocholithiasis or acute cholecystitis. ? Dictated by: Heather Banda M.D. on 05/16/2022 at 15:21 ? ? Approved by: Heather Banda M.D. on 05/16/2022 at 15:22 ? MDM Narrative Medical decision making narrative: The patient is an alcoholic. He is detoxed at home before. Is requesting not to go to detox. He does not meet any sort of involuntary criteria or risk of self-harm. He is found to have some abnormal lab values including bilirubin LFTs and creatinine. Patient states that I had elevated creatinine last time as well but he is unsure what his numbers were. He has absolutely no right upper quadrant pain. He states he did receive much relief from the phenobarbital requesting some more. He has a low CIWA score he certainly does not meet any admission criteria at this time. He has a follow-up appointment with his PCP on May 20. This time nothing further. Sinus rhythm on the monitor CIWA-Ar for Alcohol Withdrawal from [employer] on 05/16/2022 All calculations should be rechecked by clinician prior to use RESULT SUMMARY: 5 points Patients with scores <= typically do not require medication for withdrawal. INPUTS: Nausea/vomiting ?> 1 = Mild nausea and no vomiting Tremor ?> 2 = (More severe symptoms) Paroxysmal sweats ?> 1 = Barely perceptible sweating, palms moist Anxiety ?> 1 = Mildly anxious Agitation ?> 0 = Normal activity Tactile disturbances ?> 0 = None Auditory disturbances ?> 0 = Not present Visual disturbances ?> 0 = Not present Headache/fullness in head ?> 0 = Not Present Orientation/clouding of sensorium ?> 0 = Oriented, can do serial additions Discharge Plan Departure Patient Disposition: Home Clinical Impression: Alcohol withdrawal Instructions: DI for Delirium Tremens Activity Restrictions/Additional Instructions: *You have been diagnosed with alcohol withdrawal *What to do: At this time stop drinking alcohol. Risk of cardiac a arrhythmia which can lead to , risk of his seizure Also please have your blood work rechecked with her primary care provider. Kidney function and liver function were both noted to be elevated *Continue to take medications as directed Ativan 1 mg 3 times a day for 2 days, 1 mg 2 times a day for 2 days, 1 mg once a day for 2 days--> SENT TO [facility] *Follow up with your primary care provider in 2-3 days or call [phone] *Return to ER if you should have a seizure, confusion, symptoms not controlled, passing out her palpitation or any new, worsening or concerning symptoms Prescriptions: New lorazepam [Ativan] 1 mg tablet 1 mg PO TID PRN (Reason: alcohol withdrawal) Qty: 12 0RF Rx Instructions: 1 tablet 3 times a day for 2 days, 1 tablet twice a day for 2 days, 1 tablet once a day for 2 days No Action lisinopril 40 mg PO DAILY amlodipine 2.5 mg tablet 5 mg PO DAILY metoprolol tartrate 50 mg PO DAILY atorvastatin 20 mg PO DAILY allopurinol 100 mg tablet 300 mg PO DAILY docusate sodium [Colace] 100 mg capsule 100 mg PO BID Qty: 40 0RF oxycodone 5 mg tablet 5 mg PO Q6H PRN (Reason: pain) Qty: 30 0RF Referrals: Rayray José DO [Primary Care Provider] - Visit Report Forms: Patient Portal/API
[2022-05-16 11:45] LABS: Add Manual Diff / Slide Review NO; Basophils Absolute Auto 0 /uL (0-100); Basophils Percent Auto 0.4 % (0-2); Eosinophils Absolute Auto 0 /uL (0-450); Eosinophils Percent Auto 1.2 % (2-4); Hematocrit 27.6 % (41-53); Hemoglobin 9.5 g/dL (13.5-17.5); Lymphocytes Absolute Auto 1000 /uL (1100-4500); Lymphocytes Percent Auto 26.2 % (25-40); Mean Corpuscular HGB Conc 34.3 % (30-36); Mean Corpuscular Hemoglobin 33.9 PG (26-34); Mean Corpuscular Volume 98.7 fL (80-100); Monocytes Absolute Auto 400 /uL (0-900); Monocytes Percent Auto 11.2 % (3-14); Neutrophils Absolute Auto 2400 /uL (1500-7000); Platelet Count 83 X10^3/uL (150-400); Red Blood Cell Count 2.79 X10^6/uL (4.5-5.9); Red Cell Distribution Width 14.2 % (11.6-14.8); White Blood Cell Count 3.9 X10^3/uL (4.5-11.0)
[2022-05-16] MEDS: PHENobarbital 65 MG/ML VIAL 260 MG IV (11:51)
[2022-05-16 12:02] LABS: UR Morphine/Opiate cutoff 300 Negative (Negative); Ur Creatinine Normal (Normal); Ur Specific Gravity Normal (Normal); Urine Amphetamines Negative (Negative); Urine Cocaine Negative (Negative); Urine Methamphetamines Negative (Negative); Urine Tetrahydrocannabinol Negative (Negative); Urine pH Normal (Normal)
[2022-05-16 12:03] LABS: Urine Barbiturates Negative (Negative); Urine Benzodiazepines Positive (Negative); Urine MDMA Negative (Negative); Urine Methadone Negative (Negative); Urine Oxycodone Negative (Negative); Urine Phencyclidine Negative (Negative); Urine Tricyclic Antidepressant Negative (Negative)
[2022-05-16 12:04] LABS: Acetaminophen < 10 ug/mL (10-30); Alanine Aminotransferase 90 IU/L (<50); Albumin 4.7 g/dL (3.5-5.0); Albumin Globulin Ratio 1.7 (1.0-2.8); Alkaline Phosphatase 59 U/L (38-126); Aspartate Aminotransferase 150 IU/L (17-59); BUN Creatinine Ratio 20.5 (6-22); Bilirubin Total 1.4 mg/dL (0.2-1.3); Blood Urea Nitrogen 46 mg/dL (9-20); Carbon Dioxide 18 mmol/L (22-32); Chloride 105 mmol/L (98-107); Estimated Glomerular Filt Rate 36 mL/min (>60); Ethanol (ETOH) < 10 mg/dL; Globulin 2.7 g/dL (1.7-4.1); Glucose 169 mg/dL (70-100); HEMOLYSIS < 15 (0-50); Potassium 4.8 mmol/L (3.4-5.1); Salicylate < 1.0 mg/dL (<20); Sodium 136 mmol/L (137-145); Total Protein 7.4 g/dL (6.3-8.2)
[2022-05-16 12:09] LABS: Bacteria Urine None Seen; Culture Indicated Urine Cult Not Indicated; RBC Urine None Seen (0-5/HPF); Squamous Epithelial Cell Urine 1-5 /HPF (0-5/HPF); WBC Urine None Seen (0-5/HPF)
--- NOTE | 2022-05-16 13:12 | CM.SWNOTE ---
DUST BRUSH ASSEMBLER Assessment DUST BRUSH ASSEMBLER - Grinder Assessment DUST BRUSH ASSEMBLER/Grinder Assessment Time Spent with Patient Start date 05/16/22 Visit Start Time 12:20 End date 05/16/22 Visit End Time 12:50 Total time Care Management spent on 30 minutes patient visit-in minutes Mental Health Screening Include Onset, Duration, Intensity Psych. Hx Mental Health and Chemical dx of PTSD and ETOH use Dependency disorder Substance Abuse Screening Include Onset, Duration, Intensity Presenting Problem Patient presents to ED with due to concern for ETOH withdrawals. Patient endorses hx of ETOH use for the last 25 years and states he generally drinks 1/2 of 750mls of vodka a day. Precipitating Event(s) Patient endorses that he is a disabled retired and stopped working in November 2021. Patient Strengths Patient shows insight and would like to stop drinking and address his anxiety. Current Behavioral Health Provider(s) Patient endorses hx of MH Include Facility, Provider, Ph. # counseling to address his PTSD . Family Hx of Behavioral Abuse None reported Rehab Facilities? ((Date(s), Location(s) Patient endorses hx of IOP and ) detox in 2006 via a program. History of Withdrawal? Seizures? Patient endorses hx of nausea, anxiety, vomiting and tremors. Patient endorses hx of seizure in 2019. 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 Patient endorses as support and suggested he come to the ED. School/Work retired [employer], on disability Legal Concerns Legal Matters - Outstanding Issues none reported Mental Status Orientation (Person/Place/Time) A/Ox4 Stated Mood ok Affect (Congruent with Mood?) euthymic, full range, congruent with mood Thought Content - Specify/Describe None reported Obsessions, Delusions, Hallucinations Thought Processes (Ucgxvdn-Zspfxzrq-Qqae coherent Vfnaptkc-Miqtvvha-Kzhizfzqki- Hpywljeeyghyjt-Msuwqzf-Zpjhlmmntstu- Thought Blocking) Speech (Awoobs-Fpst-Nphxqnx-Rapid-Soft- normal Loud-Pressured) Motor (Hmxbyg-Ahuvnaoxk-Ukxt-Other) normal Insight (Dkil-Nhto-Wenr/Limited) good/fair Judgement (Xqgw-Fodn-Pijg/Limited) fair Impulse Control (Adequate-Impaired) adequate Memory (Ssexdhozx-Uojqdy-Wqrwld, intact Impaired-Intact) Concentration (Intact-Impaired) intact Attention (Intact-Impaired) intact Behavior (Appropriate-Inappropriate) appropriate Additional Comment Patient presents as calm, communicative and cooperative. Risk Assessment Suicidal Ideation (Plan) No Homicidal Ideation (Plan) No Intervention Intervention DUST BRUSH ASSEMBLER enters room to meet with patient. Patient presents with and provides consent for her to be present in room. Patient endorses 25 year hx of ETOH use. Patient endorses almost daily use of about half a 750ml bottle of vodka. Patient endorses hx of AA, IOP and detox and found it to be unhelpful. Patient endorses his last drink was last evening at 2100 , patient's toxicology screen is negative for ETOH. Patient endorses increase in ETOH use since recent snf from [employer]. Patient endorses he spends his time watching tv and drinking. DUST BRUSH ASSEMBLER discusses identifying hobbies and what patient enjoys doing with his spare time. Patient endorses he used to enjoy being outdoors. Patient endorses that he has an upcoming PCP appt on . Patient endorses interest in anxiety medication, DUST BRUSH ASSEMBLER encourages patient to discuss this recent ED visit and reasons why he thinks anxiety medication will be helpful. Patient indicates agreement and understanding. Patient endorses preference to detox at home when medically clear to do so. DUST BRUSH ASSEMBLER provides patient with IOP and detox local services. It is the opinion of this DUST BRUSH ASSEMBLER that patient is safe to d/c to home when medically clear. DUST BRUSH ASSEMBLER reviews the above with ED provider Dr. Titus who indicates agreement and understanding. Plan RA Plan Patient to d/c to home with when medically clear, patient to f/u with PCP and seek out outpatient resources when ready. Carolynn Deshpande, INTENSIVE CARE SPECIALIST
[2022-05-16] MEDS: diazePAM 10 MG/2 ML SYRINGE 2 MG IV (14:35)
[2022-05-16 14:37] VITALS: BP 121/61; PULSE 65; RESP 20; O2SAT 99
[2022-05-16 16:07] VITALS: BP 123/70; PULSE 70; RESP 20; O2SAT 99
== END 2022-05-16 16:07 | disposition home or self-care (01) ==
PROVIDERS: Emergency Provider Emergency Medicine; PCP Student in an Organized Health Care Education/Training Program
DX: F10.139 Alcohol abuse with withdrawal, unspecified (principal)
CPT/HCPCS: 36415; 76700; 80053; 80305; 80320; 80329; 81003; 81015; 84443; 85025; 96374; 96375; 99284; G0480; J2560; J3360

== ENCOUNTER 2022-09-25 02:39 | Inpatient (IN) | payer OTHER, SELFPAY ==
[2022-09-25] VITALS (28 sets, daily range): BP systolic 115–186; BP diastolic 56–84; PULSE 68–98; RESP 16–27; TEMP 36.7–37.2; O2SAT 76–100; BMI 32.8
--- NOTE | 2022-09-25 02:51 | ED.GIBLEED ---
HPI - GI Bleed <Alex Queen MD - Last Filed: 10/04/22 08:31> General Chief complaint: GI Bleed Stated complaint: Rectal Bleed Time Seen by Provider: 09/25/22 02:46 Mode of arrival: EMS History of Present Illness HPI Narrative: Patient brought in by ambulance from home. Patient has been drinking a lot of alcohol recently. He does drink daily about a 5th of vodka each day. However he is trying to quit. He stopped drinking 2 days ago. Has had shaking and tremors and nausea. No SI or HI. Patient also complains of painful bright red blood per rectum. Patient stated hurts at the rectum but not the abdomen or pelvis. Related Data Home Medications Medication Instructions Recorded Confirmed amlodipine 2.5 mg tablet 5 mg PO DAILY 09/09/18 09/27/22 atorvastatin 20 mg PO DAILY 09/09/18 09/27/22 lisinopril 40 mg PO DAILY 09/09/18 09/27/22 metoprolol tartrate 50 mg PO DAILY 09/09/18 09/27/22 allopurinol 100 mg tablet 300 mg PO DAILY 06/20/20 09/27/22 Previous Rx's Medication Instructions Recorded docusate sodium 100 mg capsule 100 mg PO BID #40 caps 07/03/20 (Colace) oxycodone 5 mg tablet 5 mg PO Q6H PRN pain #30 tabs 07/03/20 folic acid 1 mg tablet 1 mg PO DAILY #30 tabs 09/28/22 magnesium oxide 500 mg capsule 500 mg PO BID #14 caps 09/28/22 multivitamin with folic acid 400 1 tab PO DAILY #30 tabs 09/28/22 mcg tablet (Tab-A-Garima) quetiapine 25 mg tablet 25 mg PO Q4H PRN Anxiety #30 tabs 09/28/22 Allergies Allergy/AdvReac Type Severity Reaction Status Date / Time No Known Drug Allergies Allergy Verified 05/16/22 10:25 Review of Systems <Alex Queen MD - Last Filed: 10/04/22 08:31> Review of Systems Narrative: GENERAL: Denies chills, fatigue, malaise, fever, sweats. HEENT: Denies sinus pain, ear pain, sore throat RESPIRATORY: Denies dyspnea, cough CARDIOVASCULAR: Denies chest pain, palpitations GASTROINTESTINAL: Denies nausea, vomiting, positive rectal bleed abdominal pain : Denies dysuria, frequency, hematuria MUSCULOSKELETAL: denies muscle or nikhil ny pain SKIN: Denies rash, skin lesions NEUROLOGIC: Denies weakness, numbness ROS Unobtainable: All systems reviewed & are unremarkable except as noted in HPI and below Patient History <Alex Queen MD - Last Filed: 10/04/22 08:31> Medical History Anal lesion Elevated ferritin GERD (gastroesophageal reflux disease) Gout HTN (hypertension) Hypercholesteremia Sleep apnea Surgical History History of appendectomy History of surgery (09/15/18) Hx of wisdom tooth extraction Family History Mother Hypertension Social History marital status: household members: none occupational status: employed Smoking Status: Never smoker alcohol intake: current substance use type: does not use Smoking Status: Never smoker alcohol intake frequency: 3 or more drinks per day Alcohol type: hard liquor Substance Use Type: does not use Exam <Alex Queen MD - Last Filed: 10/04/22 08:31> Narrative Exam Narrative: GENERAL: in no distress, not toxic not dyspneic HEAD: Normocephalic. EYES: Pupils equal round No scleral icterus. ENT: Mucous membranes moist. NECK: Trachea midline. CARDIOVASCULAR: Regular rate and rhythm without murmurs RESPIRATORY: Clear to auscultation. Breath sounds equal bilaterally. No wheezes, rales, or rhonchi. GASTROINTESTINAL: Abdomen soft, non-tender EXTREMITIES: No gross deformities. BACK: No flank tenderness. NEURO: AOx4. Patient is cooperative. Has bilateral finger tremors. No altered mental status confusion. SKIN: Warm and dry PSYCH: Not anxious, is cooperative Initial Vital Signs Initial Vital Signs: Vital Signs Temperature 98.7 F 09/25/22 02:41 Pulse Rate 98 H 09/25/22 02:41 Respiratory Rate 18 09/25/22 02:41 Blood Pressure 166/76 H 09/25/22 02:41 Pulse Oximetry 100 09/25/22 02:41 Oxygen Delivery Method 09/25/22 02:41 <Roxanna Vega DO - Last Filed: 09/25/22 18:47> Initial Vital Signs Initial Vital Signs: Vital Signs Temperature 98.7 F 09/25/22 02:41 Pulse Rate 98 H 09/25/22 02:41 Respiratory Rate 18 09/25/22 02:41 Blood Pressure 166/76 H 09/25/22 02:41 Pulse Oximetry 100 09/25/22 02:41 Oxygen Delivery Method 09/25/22 02:41 Course <Alex Queen MD - Last Filed: 10/04/22 08:31> Course Course Narrative: September 25, 2022 at 7:00 a.m.. Sign out to Dr. Vega, patient is voluntary and desires detox/rehab. Awaiting for social work evaluation. Patient has been medically cleared. Orders Ordered: Discontinued Medications Acetaminophen (Acetaminophen 325 Mg Tablet) 650 mg PO Q6H PRN PRN Reason: Fever/Mild Pain (1-3) Last Admin: 09/26/22 13:12 Dose: 650 mg Documented By: Admin: 09/25/22 17:06 Dose: 650 mg Documented By: JACEK Allopurinol (Allopurinol 300 Mg Tablet) 300 mg PO DAILY [facility] Last Admin: 09/28/22 09:38 Dose: 300 mg Documented By: Admin: 09/27/22 09:40 Dose: 300 mg Documented By: Admin: 09/26/22 09:31 Dose: Not Given Documented By: JACEK Amlodipine Besylate (Amlodipine 5 Mg Tablet) 5 mg PO DAILY [facility] Last Admin: 09/28/22 09:38 Dose: 5 mg Documented By: Admin: 09/27/22 09:40 Dose: 5 mg Documented By: Admin: 09/26/22 09:31 Dose: Not Given Documented By: JACEK Amoxicillin/Clavulanate Potassium (Amoxicillin/Clav 875/125 Mg) 1 tab PO NOW ONE Stop: 09/25/22 09:43 Last Admin: 09/25/22 09:59 Dose: 1 tab Documented By: BLAIR(2) Atorvastatin Calcium (Atorvastatin 20 Mg Tablet) 20 mg PO BEDTIME [facility] Folic Acid (Folic Acid 1 Mg Tablet) 1 mg PO DAILY [facility] Last Admin: 09/28/22 09:38 Dose: 1 mg Documented By: Admin: 09/27/22 09:40 Dose: 1 mg Documented By: Admin: 09/26/22 09:31 Dose: Not Given Documented By: Admin: 09/25/22 16:59 Dose: 1 mg Documented By: JACEK Sodium Chloride (Normal Saline 0.9%) 1,000 mls @ 100 mls/hr IV CONT BOZENA Stop: 09/26/22 02:14 Last Infusion: 09/26/22 09:19 Dose: 100 mls/hr Documented By: Admin: 09/25/22 17:07 Dose: 100 mls/hr Documented By: JACEK Magnesium Sulfate (Magnesium Sulfate) 4 gm in 100 mls @ 25 mls/hr IV NOW ONE Stop: 09/25/22 20:17 Last Admin: 09/25/22 18:25 Dose: 25 mls/hr Documented By: JACEK Co-signed By: DIANA Magnesium Sulfate (Magnesium Sulfate) 2 gm in 50 mls @ 25 mls/hr IV NOW ONE Stop: 09/28/22 12:17 Last Admin: 09/28/22 11:14 Dose: Not Given Documented By: JERI Lisinopril (Lisinopril 20 Mg Tablet) 40 mg PO DAILY BOZENA Lorazepam (Lorazepam 2 Mg/Ml Inj) 1 mg IV Q4HR PRN PRN Reason: Anxiety Last Admin: 09/26/22 20:52 Dose: 1 mg Documented By: Admin: 09/26/22 13:13 Dose: 1 mg Documented By: Admin: 09/26/22 09:33 Dose: 1 mg Documented By: Admin: 09/25/22 21:19 Dose: 1 mg Documented By: Admin: 09/25/22 17:05 Dose: 1 mg Documented By: Admin: 09/25/22 12:00 Dose: 1 mg Documented By: BLAIR(2) Admin: 09/25/22 07:46 Dose: 1 mg Documented By: BLAIR(2) Admin: 09/25/22 04:26 Dose: 1 mg Documented By: JENNIFER Lorazepam (Lorazepam 2 Mg/Ml Inj) 0 mg IV CIWAPRN PRN; Protocol PRN Reason: Alcohol Withdrawal Last Admin: 09/26/22 04:29 Dose: 1 mg Documented By: Lorazepam (Lorazepam 1 Mg Tablet) 1 mg PO NOW ONE Stop: 09/27/22 13:17 Last Admin: 09/27/22 14:27 Dose: 1 mg Documented By: BLAIR Magnesium Chloride (Magnesium Chloride 64 Mg Tablet) 128 mg PO NOW ONE Stop: 09/26/22 09:16 Last Admin: 09/26/22 09:33 Dose: Not Given Documented By: JACEK Magnesium Chloride (Magnesium Chloride 64 Mg Tablet) 128 mg PO NOW ONE Stop: 09/26/22 13:01 Last Admin: 09/26/22 12:25 Dose: 128 mg Documented By: JACEK Magnesium Chloride (Magnesium Chloride 64 Mg Tablet) 128 mg PO Q8H [facility] Stop: 09/27/22 20:46 Last Admin: 09/27/22 20:58 Dose: 128 mg Documented By: Admin: 09/27/22 14:27 Dose: 128 mg Documented By: BLAIR Magnesium Chloride (Magnesium Chloride 64 Mg Tablet) 128 mg PO Q8H [facility] Stop: 09/29/22 00:16 Last Admin: 09/28/22 09:38 Dose: 128 mg Documented By: JERI Melatonin (Melatonin 3 Mg Tablet) 6 mg PO BEDTIME PRN PRN Reason: Insomnia Last Admin: 09/26/22 20:52 Dose: 6 mg Documented By: ALPHONSO Metoprolol Succinate (Metoprolol Er 50 Mg Tablet) 50 mg PO BID [facility] Last Admin: 09/28/22 09:38 Dose: 50 mg Documented By: Admin: 09/27/22 20:58 Dose: 50 mg Documented By: Admin: 09/27/22 09:40 Dose: 50 mg Documented By: Admin: 09/26/22 21:00 Dose: 50 mg Documented By: Admin: 09/26/22 09:35 Dose: Not Given Documented By: Admin: 09/25/22 21:30 Dose: 50 mg Documented By: Morphine Sulfate (Morphine 4 Mg/Ml Inj) 4 mg IV NOW ONE Stop: 09/25/22 12:36 Last Admin: 09/25/22 12:38 Dose: 4 mg Documented By: BLAIR(2) Multivitamins (Multivitamin 1 Tablet) 1 tab PO DAILY [facility] Last Admin: 09/28/22 09:38 Dose: 1 tab Documented By: Admin: 09/27/22 09:40 Dose: 1 tab Documented By: Admin: 09/26/22 09:31 Dose: Not Given Documented By: Admin: 09/25/22 17:00 Dose: 1 tab Documented By: JACEK Naloxone HCl (Naloxone 0.4 Mg/Ml Vial) 0.2 mg IV Q2MIN PRN PRN Reason: Opiate Reversal Ondansetron HCl (Ondansetron 4 Mg/2 Ml Inj) 4 mg IV NOW ONE Stop: 09/25/22 12:44 Last Admin: 09/25/22 12:46 Dose: 4 mg Documented By: BLAIR(2) Ondansetron HCl (Ondansetron 4 Mg/2 Ml Inj) 4 mg IV Q8HR PRN PRN Reason: Nausea And Vomiting Last Admin: 09/26/22 10:33 Dose: 4 mg Documented By: Admin: 09/25/22 21:13 Dose: 4 mg Documented By: Oxycodone HCl (Oxycodone Ir 5 Mg Tablet) 5 mg PO Q6H PRN PRN Reason: pain Last Admin: 09/27/22 15:25 Dose: 5 mg Documented By: Admin: 09/26/22 20:51 Dose: 5 mg Documented By: Admin: 09/26/22 13:12 Dose: 5 mg Documented By: Admin: 09/26/22 01:53 Dose: 5 mg Documented By: Admin: 09/25/22 17:06 Dose: 5 mg Documented By: JACEK Pantoprazole Sodium (Pantoprazole 40 Mg Vial) 40 mg IV BID BOZENA Last Admin: 09/25/22 16:59 Dose: 40 mg Documented By: JACEK Polyethylene Glycol/Electrolytes ([id number]/Sod Sulf,Bicarb,Cl/Kcl 4,000 Ml Solution) 4,000 ml PO NOW ONE Stop: 09/25/22 14:15 Last Admin: 09/25/22 16:52 Dose: 4,000 ml Documented By: JACEK Polyethylene Glycol/Electrolytes ([id number]/Sod Sulf,Bicarb,Cl/Kcl 4,000 Ml Solution) 4,000 ml PO NOW ONE Stop: 09/25/22 14:21 Last Admin: 09/25/22 18:03 Dose: Not Given Documented By: JACEK Quetiapine Fumarate (Quetiapine 25 Mg Tablet) 25 mg PO Q4H PRN PRN Reason: Anxiety Last Admin: 09/27/22 21:00 Dose: 25 mg Documented By: MS Quetiapine Fumarate (Quetiapine 100 Mg Tablet) 50 mg PO Q4H PRN PRN Reason: Anxiety Thiamine HCl (Thiamine 100 Mg Tablet) 100 mg PO DAILY [facility] Stop: 09/28/22 09:01 Last Admin: 09/28/22 09:38 Dose: 100 mg Documented By: Admin: 09/27/22 09:40 Dose: 100 mg Documented By: Admin: 09/26/22 09:31 Dose: Not Given Documented By: Admin: 09/25/22 17:06 Dose: 100 mg Documented By: JACEK Vital Signs Vital signs: Vital Signs - 8 hr 09/25/22 11:00 09/25/22 11:00 09/25/22 12:00 Pulse Rate 77 82 Respiratory Rate 19 Blood Pressure 153/72 H Pulse Oximetry 96 93 09/25/22 12:01 09/25/22 12:01 09/25/22 12:30 Pulse Rate 79 84 Respiratory Rate 21 Blood Pressure 161/74 H Pulse Oximetry 98 98 09/25/22 12:50 09/25/22 12:50 09/25/22 13:00 Pulse Rate 74 82 Respiratory Rate 16 22 Blood Pressure 156/72 H Pulse Oximetry 94 95 09/25/22 13:30 09/25/22 13:30 09/25/22 14:00 Pulse Rate 88 Respiratory Rate 18 Blood Pressure 139/67 118/57 L Pulse Oximetry 98 09/25/22 14:00 09/25/22 14:30 09/25/22 14:30 Pulse Rate 72 76 Respiratory Rate 17 17 Blood Pressure 126/64 Pulse Oximetry 93 93 09/25/22 15:00 09/25/22 15:00 Pulse Rate 77 Respiratory Rate 17 Blood Pressure 127/60 Pulse Oximetry 94 <Roxanna Vega, - Last Filed: 09/25/22 18:47> Orders Ordered: Discontinued Medications Acetaminophen (Acetaminophen 325 Mg Tablet) 650 mg PO Q6H PRN PRN Reason: Fever/Mild Pain (1-3) Last Admin: 09/26/22 13:12 Dose: 650 mg Documented By: Admin: 09/25/22 17:06 Dose: 650 mg Documented By: JACEK Allopurinol (Allopurinol 300 Mg Tablet) 300 mg PO DAILY [facility] Last Admin: 09/28/22 09:38 Dose: 300 mg Documented By: Admin: 09/27/22 09:40 Dose: 300 mg Documented By: Admin: 09/26/22 09:31 Dose: Not Given Documented By: JACEK Amlodipine Besylate (Amlodipine 5 Mg Tablet) 5 mg PO DAILY [facility] Last Admin: 09/28/22 09:38 Dose: 5 mg Documented By: Admin: 09/27/22 09:40 Dose: 5 mg Documented By: Admin: 09/26/22 09:31 Dose: Not Given Documented By: JACEK Amoxicillin/Clavulanate Potassium (Amoxicillin/Clav 875/125 Mg) 1 tab PO NOW ONE Stop: 09/25/22 09:43 Last Admin: 09/25/22 09:59 Dose: 1 tab Documented By: BLAIR(2) Atorvastatin Calcium (Atorvastatin 20 Mg Tablet) 20 mg PO BEDTIME [facility] Folic Acid (Folic Acid 1 Mg Tablet) 1 mg PO DAILY [facility] Last Admin: 09/28/22 09:38 Dose: 1 mg Documented By: Admin: 09/27/22 09:40 Dose: 1 mg Documented By: Admin: 09/26/22 09:31 Dose: Not Given Documented By: Admin: 09/25/22 16:59 Dose: 1 mg Documented By: JACEK Sodium Chloride (Normal Saline 0.9%) 1,000 mls @ 100 mls/hr IV CONT BOZENA Stop: 09/26/22 02:14 Last Infusion: 09/26/22 09:19 Dose: 100 mls/hr Documented By: Admin: 09/25/22 17:07 Dose: 100 mls/hr Documented By: JACEK Magnesium Sulfate (Magnesium Sulfate) 4 gm in 100 mls @ 25 mls/hr IV NOW ONE Stop: 09/25/22 20:17 Last Admin: 09/25/22 18:25 Dose: 25 mls/hr Documented By: JACEK Co-signed By: DIANA Magnesium Sulfate (Magnesium Sulfate) 2 gm in 50 mls @ 25 mls/hr IV NOW ONE Stop: 09/28/22 12:17 Last Admin: 09/28/22 11:14 Dose: Not Given Documented By: JERI Lisinopril (Lisinopril 20 Mg Tablet) 40 mg PO DAILY [facility] Lorazepam (Lorazepam 2 Mg/Ml Inj) 1 mg IV Q4HR PRN PRN Reason: Anxiety Last Admin: 09/26/22 20:52 Dose: 1 mg Documented By: Admin: 09/26/22 13:13 Dose: 1 mg Documented By: Admin: 09/26/22 09:33 Dose: 1 mg Documented By: Admin: 09/25/22 21:19 Dose: 1 mg Documented By: Admin: 09/25/22 17:05 Dose: 1 mg Documented By: Admin: 09/25/22 12:00 Dose: 1 mg Documented By: BLAIR(2) Admin: 09/25/22 07:46 Dose: 1 mg Documented By: BLAIR(2) Admin: 09/25/22 04:26 Dose: 1 mg Documented By: JENNIFER Lorazepam (Lorazepam 2 Mg/Ml Inj) 0 mg IV CIWAPRN PRN; Protocol PRN Reason: Alcohol Withdrawal Last Admin: 09/26/22 04:29 Dose: 1 mg Documented By: Lorazepam (Lorazepam 1 Mg Tablet) 1 mg PO NOW ONE Stop: 09/27/22 13:17 Last Admin: 09/27/22 14:27 Dose: 1 mg Documented By: BLAIR Magnesium Chloride (Magnesium Chloride 64 Mg Tablet) 128 mg PO NOW ONE Stop: 09/26/22 09:16 Last Admin: 09/26/22 09:33 Dose: Not Given Documented By: JACEK Magnesium Chloride (Magnesium Chloride 64 Mg Tablet) 128 mg PO NOW ONE Stop: 09/26/22 13:01 Last Admin: 09/26/22 12:25 Dose: 128 mg Documented By: JACEK Magnesium Chloride (Magnesium Chloride 64 Mg Tablet) 128 mg PO Q8H [facility] Stop: 09/27/22 20:46 Last Admin: 09/27/22 20:58 Dose: 128 mg Documented By: Admin: 09/27/22 14:27 Dose: 128 mg Documented By: BLAIR Magnesium Chloride (Magnesium Chloride 64 Mg Tablet) 128 mg PO Q8H [facility] Stop: 09/29/22 00:16 Last Admin: 09/28/22 09:38 Dose: 128 mg Documented By: JERI Melatonin (Melatonin 3 Mg Tablet) 6 mg PO BEDTIME PRN PRN Reason: Insomnia Last Admin: 09/26/22 20:52 Dose: 6 mg Documented By: ALPHONSO Metoprolol Succinate (Metoprolol Er 50 Mg Tablet) 50 mg PO BID BOZENA Last Admin: 09/28/22 09:38 Dose: 50 mg Documented By: Admin: 09/27/22 20:58 Dose: 50 mg Documented By: Admin: 09/27/22 09:40 Dose: 50 mg Documented By: Admin: 09/26/22 21:00 Dose: 50 mg Documented By: Admin: 09/26/22 09:35 Dose: Not Given Documented By: Admin: 09/25/22 21:30 Dose: 50 mg Documented By: Morphine Sulfate (Morphine 4 Mg/Ml Inj) 4 mg IV NOW ONE Stop: 09/25/22 12:36 Last Admin: 09/25/22 12:38 Dose: 4 mg Documented By: BLAIR(2) Multivitamins (Multivitamin 1 Tablet) 1 tab PO DAILY BO[facility]NA Last Admin: 09/28/22 09:38 Dose: 1 tab Documented By: Admin: 09/27/22 09:40 Dose: 1 tab Documented By: Admin: 09/26/22 09:31 Dose: Not Given Documented By: Admin: 09/25/22 17:00 Dose: 1 tab Documented By: JACEK Naloxone HCl (Naloxone 0.4 Mg/Ml Vial) 0.2 mg IV Q2MIN PRN PRN Reason: Opiate Reversal Ondansetron HCl (Ondansetron 4 Mg/2 Ml Inj) 4 mg IV NOW ONE Stop: 09/25/22 12:44 Last Admin: 09/25/22 12:46 Dose: 4 mg Documented By: BLAIR(2) Ondansetron HCl (Ondansetron 4 Mg/2 Ml Inj) 4 mg IV Q8HR PRN PRN Reason: Nausea And Vomiting Last Admin: 09/26/22 10:33 Dose: 4 mg Documented By: Admin: 09/25/22 21:13 Dose: 4 mg Documented By: Oxycodone HCl (Oxycodone Ir 5 Mg Tablet) 5 mg PO Q6H PRN PRN Reason: pain Last Admin: 09/27/22 15:25 Dose: 5 mg Documented By: Admin: 09/26/22 20:51 Dose: 5 mg Documented By: Admin: 09/26/22 13:12 Dose: 5 mg Documented By: Admin: 09/26/22 01:53 Dose: 5 mg Documented By: Admin: 09/25/22 17:06 Dose: 5 mg Documented By: BT Pantoprazole Sodium (Pantoprazole 40 Mg Vial) 40 mg IV BID [facility] Last Admin: 09/25/22 16:59 Dose: 40 mg Documented By: BT Polyethylene Glycol/Electrolytes ([id number]/Sod Sulf,Bicarb,Cl/Kcl 4,000 Ml Solution) 4,000 ml PO NOW ONE Stop: 09/25/22 14:15 Last Admin: 09/25/22 16:52 Dose: 4,000 ml Documented By: BT Polyethylene Glycol/Electrolytes ([id number]/Sod Sulf,Bicarb,Cl/Kcl 4,000 Ml Solution) 4,000 ml PO NOW ONE Stop: 09/25/22 14:21 Last Admin: 09/25/22 18:03 Dose: Not Given Documented By: BT Quetiapine Fumarate (Quetiapine 25 Mg Tablet) 25 mg PO Q4H PRN PRN Reason: Anxiety Last Admin: 09/27/22 21:00 Dose: 25 mg Documented By: Quetiapine Fumarate (Quetiapine 100 Mg Tablet) 50 mg PO Q4H PRN PRN Reason: Anxiety Thiamine HCl (Thiamine 100 Mg Tablet) 100 mg PO DAILY [facility] Stop: 09/28/22 09:01 Last Admin: 09/28/22 09:38 Dose: 100 mg Documented By: Admin: 09/27/22 09:40 Dose: 100 mg Documented By: Admin: 09/26/22 09:31 Dose: Not Given Documented By: Admin: 09/25/22 17:06 Dose: 100 mg Documented By: JACEK Vital Signs Vital signs: Vital Signs - 8 hr 09/25/22 11:00 09/25/22 11:00 09/25/22 12:00 Pulse Rate 77 82 Respiratory Rate 19 Blood Pressure 153/72 H Pulse Oximetry 96 93 09/25/22 12:01 09/25/22 12:01 09/25/22 12:30 Pulse Rate 79 84 Respiratory Rate 21 Blood Pressure 161/74 H Pulse Oximetry 98 98 09/25/22 12:50 09/25/22 12:50 09/25/22 13:00 Pulse Rate 74 82 Respiratory Rate 16 22 Blood Pressure 156/72 H Pulse Oximetry 94 95 09/25/22 13:30 09/25/22 13:30 09/25/22 14:00 Pulse Rate 88 Respiratory Rate 18 Blood Pressure 139/67 118/57 L Pulse Oximetry 98 09/25/22 14:00 09/25/22 14:30 09/25/22 14:30 Pulse Rate 72 76 Respiratory Rate 17 17 Blood Pressure 126/64 Pulse Oximetry 93 93 09/25/22 15:00 09/25/22 15:00 Pulse Rate 77 Respiratory Rate 17 Blood Pressure 127/60 Pulse Oximetry 94 MDM - GI Bleed <Alex Queen MD - Last Filed: 10/04/22 08:31> Differential Diagnosis Differential diagnosis: Likely hemorrhoids, Upper gastrointestinal hemorrhage, Lower gastrointestinal hemorrhage, hematochezia, melena and anal fissure Lab Data Result diagrams: 09/28/22 07:10 09/28/22 07:10 Labs: Lab Results 09/25/22 09/25/22 09/25/22 Range/Units 03:15 03:15 03:15 WBC 6.0 (4.5-11.0) X10^3/uL RBC 3.37 L (4.5-5.9) X10^6/uL Hgb 11.5 L (13.5-17.5) g/dL Hct 34.2 L (41-53) % MCV 101.6 H (80-100) fL MCH 34.0 (26-34) PG MCHC 33.4 (30-36) % RDW 15.9 H (11.6-14.8) % Plt Count 131 L (150-400) X10^3/uL Neut % (Auto) 77.1 H (50-75) % Lymph % (Auto) 8.9 L (25-40) % [place] % (Auto) 13.7 (3-14) % Eos % (Auto) 0.0 L (2-4) % Baso % (Auto) 0.3 (0-2) % Neut # (Auto) 4600 (7256-1620) /uL Lymph # (Auto) 500 L (8671-4340) /uL [place] # (Auto) 800 (0-900) /uL Eos # (Auto) 0 (0-450) /uL Baso # (Auto) 0 (0-100) /uL Sodium 133 L (137-145) mmol/L Potassium 5.0 (3.4-5.1) mmol/L Chloride 94 L (98-107) mmol/L Carbon Dioxide 12 L (22-32) mmol/L BUN 38 H (9-20) mg/dL Creatinine 1.71 H (0.66-1.25) mg/dL Estimated GFR 50 L (>60) mL/min BUN/Creatinine Ratio 22.2 H (6-22) Glucose 101 H (70-100) mg/dL Calcium 9.2 (8.4-10.2) mg/dL Magnesium (1.6-2.3) mg/dL Total Bilirubin 1.9 H (0.2-1.3) mg/dL AST 351 H (17-59) IU/L ALT 340 H (<50) IU/L Alkaline Phosphatase 81 (38-126) U/L Total Protein 8.3 H (6.3-8.2) g/dL Albumin 5.0 (3.5-5.0) g/dL Globulin 3.3 (1.7-4.1) g/dL Albumin/Globulin Ratio 1.5 (1.0-2.8) TSH 0.70 (0.47-4.68) uIU/mL Urine Color Urine Appearance Urine pH (4.5-8.0) Ur Specific [place] (1.000-1.035) Urine Protein (Negative) Urine Glucose (UA) (Negative) g/dL Urine Ketones (NEGATIVE) Urine Occult Blood (Negative) Urine Nitrate (Negative) Urine Bilirubin (NEGATIVE) Urine Urobilinogen (0.2) E.U./dL Ur Leukocyte Esterase (NEGATIVE) Urine RBC (0-5/HPF) Urine WBC (0-5/HPF) Ur Squamous Epith Cells (0-5/HPF) Urine Bacteria (None) Ur Culture Indicated? U Opiates 300ng/mL cut (Negative) Ur Oxycodone Screen (Negative) Urine Methadone Screen (Negative) Acetaminophen < 10 (10-30) ug/mL Ur Barbiturates Screen (Negative) U Tricyclic Antidepress (Negative) Ur Phencyclidine Scrn (Negative) Ur Amphetamines Screen (Negative) U Methamphetamines Scrn (Negative) Ur MDMA Scrn (Ecstasy) (Negative) U Benzodiazepines Scrn (Negative) Urine Cocaine Screen (Negative) U Marijuana (THC) Screen (Negative) Ethyl Alcohol 59 H ( - 10) mg/dL SARS-CoV-2 (PCR) (Negative) Blood Type Antibody Screen 09/25/22 09/25/22 09/25/22 Range/Units 07:50 08:43 08:43 WBC (4.5-11.0) X10^3/uL RBC (4.5-5.9) X10^6/uL Hgb (13.5-17.5) g/dL Hct (41-53) % MCV (80-100) fL MCH (26-34) PG MCHC (30-36) % RDW (11.6-14.8) % Plt Count (150-400) X10^3/uL Neut % (Auto) (50-75) % Lymph % (Auto) (25-40) % [place] % (Auto) (3-14) % Eos % (Auto) (2-4) % Baso % (Auto) (0-2) % Neut # (Auto) (0818-9917) /uL Lymph # (Auto) (3565-8628) /uL [place] # (Auto) (0-900) /uL Eos # (Auto) (0-450) /uL Baso # (Auto) (0-100) /uL Sodium (137-145) mmol/L Potassium (3.4-5.1) mmol/L Chloride (98-107) mmol/L Carbon Dioxide (22-32) mmol/L BUN (9-20) mg/dL Creatinine (0.66-1.25) mg/dL Estimated GFR (>60) mL/min BUN/Creatinine Ratio (6-22) Glucose (70-100) mg/dL Calcium (8.4-10.2) mg/dL Magnesium (1.6-2.3) mg/dL Total Bilirubin (0.2-1.3) mg/dL AST (17-59) IU/L ALT (<50) IU/L Alkaline Phosphatase (38-126) U/L Total Protein (6.3-8.2) g/dL Albumin (3.5-5.0) g/dL Globulin (1.7-4.1) g/dL Albumin/Globulin Ratio (1.0-2.8) TSH (0.47-4.68) uIU/mL Urine Color Yellow Urine Appearance Clear Urine pH 5.0 (4.5-8.0) Ur Specific [place] 1.010 (1.000-1.035) Urine Protein Negative (Negative) Urine Glucose (UA) Negative (Negative) g/dL Urine Ketones 1+ H (NEGATIVE) Urine Occult Blood Trace-lysed (Negative) Urine Nitrate Negative (Negative) Urine Bilirubin Negative (NEGATIVE) Urine Urobilinogen 0.2 (0.2) E.U./dL Ur Leukocyte Esterase Negative (NEGATIVE) Urine RBC 0-1/hpf (0-5/HPF) Urine WBC 0-1/hpf (0-5/HPF) Ur Squamous Epith Cells 0-1 /hpf (0-5/HPF) Urine Bacteria Occasional (0-1) (None) Ur Culture Indicated? Cult not indicated U Opiates 300ng/mL cut Negative (Negative) Ur Oxycodone Screen Negative (Negative) Urine Methadone Screen Negative (Negative) Acetaminophen (10-30) ug/mL Ur Barbiturates Screen Negative (Negative) U Tricyclic Antidepress Negative (Negative) Ur Phencyclidine Scrn Negative (Negative) Ur Amphetamines Screen Negative (Negative) U Methamphetamines Scrn Negative (Negative) Ur MDMA Scrn (Ecstasy) Negative (Negative) U Benzodiazepines Scrn Negative (Negative) Urine Cocaine Screen Negative (Negative) U Marijuana (THC) Screen Negative (Negative) Ethyl Alcohol ( - 10) mg/dL SARS-CoV-2 (PCR) Negative (Negative) Blood Type Antibody Screen 09/25/22 09/25/22 09/25/22 Range/Units 08:50 08:50 14:15 WBC (4.5-11.0) X10^3/uL RBC (4.5-5.9) X10^6/uL Hgb 10.7 L (13.5-17.5) g/dL Hct 31.0 L (41-53) % MCV (80-100) fL MCH (26-34) PG MCHC (30-36) % RDW (11.6-14.8) % Plt Count (150-400) X10^3/uL Neut % (Auto) (50-75) % Lymph % (Auto) (25-40) % [place] % (Auto) (3-14) % Eos % (Auto) (2-4) % Baso % (Auto) (0-2) % Neut # (Auto) (0083-3603) /uL Lymph # (Auto) (3292-2106) /uL [place] # (Auto) (0-900) /uL Eos # (Auto) (0-450) /uL Baso # (Auto) (0-100) /uL Sodium (137-145) mmol/L Potassium (3.4-5.1) mmol/L Chloride (98-107) mmol/L Carbon Dioxide (22-32) mmol/L BUN (9-20) mg/dL Creatinine (0.66-1.25) mg/dL Estimated GFR (>60) mL/min BUN/Creatinine Ratio (6-22) Glucose (70-100) mg/dL Calcium (8.4-10.2) mg/dL Magnesium 1.2 L (1.6-2.3) mg/dL Total Bilirubin (0.2-1.3) mg/dL AST (17-59) IU/L ALT (<50) IU/L Alkaline Phosphatase (38-126) U/L Total Protein (6.3-8.2) g/dL Albumin (3.5-5.0) g/dL Globulin (1.7-4.1) g/dL Albumin/Globulin Ratio (1.0-2.8) TSH (0.47-4.68) uIU/mL Urine Color Urine Appearance Urine pH (4.5-8.0) Ur Specific [place] (1.000-1.035) Urine Protein (Negative) Urine Glucose (UA) (Negative) g/dL Urine Ketones (NEGATIVE) Urine Occult Blood (Negative) Urine Nitrate (Negative) Urine Bilirubin (NEGATIVE) Urine Urobilinogen (0.2) E.U./dL Ur Leukocyte Esterase (NEGATIVE) Urine RBC (0-5/HPF) Urine WBC (0-5/HPF) Ur Squamous Epith Cells (0-5/HPF) Urine Bacteria (None) Ur Culture Indicated? U Opiates 300ng/mL cut (Negative) Ur Oxycodone Screen (Negative) Urine Methadone Screen (Negative) Acetaminophen (10-30) ug/mL Ur Barbiturates Screen (Negative) U Tricyclic Antidepress (Negative) Ur Phencyclidine Scrn (Negative) Ur Amphetamines Screen (Negative) U Methamphetamines Scrn (Negative) Ur MDMA Scrn (Ecstasy) (Negative) U Benzodiazepines Scrn (Negative) Urine Cocaine Screen (Negative) U Marijuana (THC) Screen (Negative) Ethyl Alcohol ( - 10) mg/dL SARS-CoV-2 (PCR) (Negative) Blood Type O Positive Antibody Screen Negative ECG Data Interpretation: Normal sinus rhythm rate [address] elevation or depression MDM Narrative Medical decision making narrative: Appropriate for social work evaluation. No CT imaging indicated this time. Patient source of rectal bleeding is likely hemorrhoids. It is painful bleeding at the anus. Hemoglobin/CBC is stable. Vital signs are stable. No tachycardia. <Roxanna Vega DO - Last Filed: 09/25/22 18:47> Lab Data Labs: Lab Results 09/25/22 09/25/22 09/25/22 Range/Units 03:15 03:15 03:15 WBC 6.0 (4.5-11.0) X10^3/uL RBC 3.37 L (4.5-5.9) X10^6/uL Hgb 11.5 L (13.5-17.5) g/dL Hct 34.2 L (41-53) % MCV 101.6 H (80-100) fL MCH 34.0 (26-34) PG MCHC 33.4 (30-36) % RDW 15.9 H (11.6-14.8) % Plt Count 131 L (150-400) X10^3/uL Neut % (Auto) 77.1 H (50-75) % Lymph % (Auto) 8.9 L (25-40) % [place] % (Auto) 13.7 (3-14) % Eos % (Auto) 0.0 L (2-4) % Baso % (Auto) 0.3 (0-2) % Neut # (Auto) 4600 (3688-7258) /uL Lymph # (Auto) 500 L (5599-2197) /uL [place] # (Auto) 800 (0-900) /uL Eos # (Auto) 0 (0-450) /uL Baso # (Auto) 0 (0-100) /uL Sodium 133 L (137-145) mmol/L Potassium 5.0 (3.4-5.1) mmol/L Chloride 94 L (98-107) mmol/L Carbon Dioxide 12 L (22-32) mmol/L BUN 38 H (9-20) mg/dL Creatinine 1.71 H (0.66-1.25) mg/dL Estimated GFR 50 L (>60) mL/min BUN/Creatinine Ratio 22.2 H (6-22) Glucose 101 H (70-100) mg/dL Calcium 9.2 (8.4-10.2) mg/dL Magnesium (1.6-2.3) mg/dL Total Bilirubin 1.9 H (0.2-1.3) mg/dL AST 351 H (17-59) IU/L ALT 340 H (<50) IU/L Alkaline Phosphatase 81 (38-126) U/L Total Protein 8.3 H (6.3-8.2) g/dL Albumin 5.0 (3.5-5.0) g/dL Globulin 3.3 (1.7-4.1) g/dL Albumin/Globulin Ratio 1.5 (1.0-2.8) TSH 0.70 (0.47-4.68) uIU/mL Urine Color Urine Appearance Urine pH (4.5-8.0) Ur Specific [place] (1.000-1.035) Urine Protein (Negative) Urine Glucose (UA) (Negative) g/dL Urine Ketones (NEGATIVE) Urine Occult Blood (Negative) Urine Nitrate (Negative) Urine Bilirubin (NEGATIVE) Urine Urobilinogen (0.2) E.U./dL Ur Leukocyte Esterase (NEGATIVE) Urine RBC (0-5/HPF) Urine WBC (0-5/HPF) Ur Squamous Epith Cells (0-5/HPF) Urine Bacteria (None) Ur Culture Indicated? U Opiates 300ng/mL cut (Negative) Ur Oxycodone Screen (Negative) Urine Methadone Screen (Negative) Acetaminophen < 10 (10-30) ug/mL Ur Barbiturates Screen (Negative) U Tricyclic Antidepress (Negative) Ur Phencyclidine Scrn (Negative) Ur Amphetamines Screen (Negative) U Methamphetamines Scrn (Negative) Ur MDMA Scrn (Ecstasy) (Negative) U Benzodiazepines Scrn (Negative) Urine Cocaine Screen (Negative) U Marijuana (THC) Screen (Negative) Ethyl Alcohol 59 H ( - 10) mg/dL SARS-CoV-2 (PCR) (Negative) Blood Type Antibody Screen 09/25/22 09/25/22 09/25/22 Range/Units 07:50 08:43 08:43 WBC (4.5-11.0) X10^3/uL RBC (4.5-5.9) X10^6/uL Hgb (13.5-17.5) g/dL Hct (41-53) % MCV (80-100) fL MCH (26-34) PG MCHC (30-36) % RDW (11.6-14.8) % Plt Count (150-400) X10^3/uL Neut % (Auto) (50-75) % Lymph % (Auto) (25-40) % [place] % (Auto) (3-14) % Eos % (Auto) (2-4) % Baso % (Auto) (0-2) % Neut # (Auto) (8040-4544) /uL Lymph # (Auto) (1614-9154) /uL [place] # (Auto) (0-900) /uL Eos # (Auto) (0-450) /uL Baso # (Auto) (0-100) /uL Sodium (137-145) mmol/L Potassium (3.4-5.1) mmol/L Chloride (98-107) mmol/L Carbon Dioxide (22-32) mmol/L BUN (9-20) mg/dL Creatinine (0.66-1.25) mg/dL Estimated GFR (>60) mL/min BUN/Creatinine Ratio (6-22) Glucose (70-100) mg/dL Calcium (8.4-10.2) mg/dL Magnesium (1.6-2.3) mg/dL Total Bilirubin (0.2-1.3) mg/dL AST (17-59) IU/L ALT (<50) IU/L Alkaline Phosphatase (38-126) U/L Total Protein (6.3-8.2) g/dL Albumin (3.5-5.0) g/dL Globulin (1.7-4.1) g/dL Albumin/Globulin Ratio (1.0-2.8) TSH (0.47-4.68) uIU/mL Urine Color Yellow Urine Appearance Clear Urine pH 5.0 (4.5-8.0) Ur Specific [place] 1.010 (1.000-1.035) Urine Protein Negative (Negative) Urine Glucose (UA) Negative (Negative) g/dL Urine Ketones 1+ H (NEGATIVE) Urine Occult Blood Trace-lysed (Negative) Urine Nitrate Negative (Negative) Urine Bilirubin Negative (NEGATIVE) Urine Urobilinogen 0.2 (0.2) E.U./dL Ur Leukocyte Esterase Negative (NEGATIVE) Urine RBC 0-1/hpf (0-5/HPF) Urine WBC 0-1/hpf (0-5/HPF) Ur Squamous Epith Cells 0-1 /hpf (0-5/HPF) Urine Bacteria Occasional (0-1) (None) Ur Culture Indicated? Cult not indicated U Opiates 300ng/mL cut Negative (Negative) Ur Oxycodone Screen Negative (Negative) Urine Methadone Screen Negative (Negative) Acetaminophen (10-30) ug/mL Ur Barbiturates Screen Negative (Negative) U Tricyclic Antidepress Negative (Negative) Ur Phencyclidine Scrn Negative (Negative) Ur Amphetamines Screen Negative (Negative) U Methamphetamines Scrn Negative (Negative) Ur MDMA Scrn (Ecstasy) Negative (Negative) U Benzodiazepines Scrn Negative (Negative) Urine Cocaine Screen Negative (Negative) U Marijuana (THC) Screen Negative (Negative) Ethyl Alcohol ( - 10) mg/dL SARS-CoV-2 (PCR) Negative (Negative) Blood Type Antibody Screen 09/25/22 09/25/22 09/25/22 Range/Units 08:50 08:50 14:15 WBC (4.5-11.0) X10^3/uL RBC (4.5-5.9) X10^6/uL Hgb 10.7 L (13.5-17.5) g/dL Hct 31.0 L (41-53) % MCV (80-100) fL MCH (26-34) PG MCHC (30-36) % RDW (11.6-14.8) % Plt Count (150-400) X10^3/uL Neut % (Auto) (50-75) % Lymph % (Auto) (25-40) % [place] % (Auto) (3-14) % Eos % (Auto) (2-4) % Baso % (Auto) (0-2) % Neut # (Auto) (9778-5271) /uL Lymph # (Auto) (6083-8419) /uL [place] # (Auto) (0-900) /uL Eos # (Auto) (0-450) /uL Baso # (Auto) (0-100) /uL Sodium (137-145) mmol/L Potassium (3.4-5.1) mmol/L Chloride (98-107) mmol/L Carbon Dioxide (22-32) mmol/L BUN (9-20) mg/dL Creatinine (0.66-1.25) mg/dL Estimated GFR (>60) mL/min BUN/Creatinine Ratio (6-22) Glucose (70-100) mg/dL Calcium (8.4-10.2) mg/dL Magnesium 1.2 L (1.6-2.3) mg/dL Total Bilirubin (0.2-1.3) mg/dL AST (17-59) IU/L ALT (<50) IU/L Alkaline Phosphatase (38-126) U/L Total Protein (6.3-8.2) g/dL Albumin (3.5-5.0) g/dL Globulin (1.7-4.1) g/dL Albumin/Globulin Ratio (1.0-2.8) TSH (0.47-4.68) uIU/mL Urine Color Urine Appearance Urine pH (4.5-8.0) Ur Specific [place] (1.000-1.035) Urine Protein (Negative) Urine Glucose (UA) (Negative) g/dL Urine Ketones (NEGATIVE) Urine Occult Blood (Negative) Urine Nitrate (Negative) Urine Bilirubin (NEGATIVE) Urine Urobilinogen (0.2) E.U./dL Ur Leukocyte Esterase (NEGATIVE) Urine RBC (0-5/HPF) Urine WBC (0-5/HPF) Ur Squamous Epith Cells (0-5/HPF) Urine Bacteria (None) Ur Culture Indicated? U Opiates 300ng/mL cut (Negative) Ur Oxycodone Screen (Negative) Urine Methadone Screen (Negative) Acetaminophen (10-30) ug/mL Ur Barbiturates Screen (Negative) U Tricyclic Antidepress (Negative) Ur Phencyclidine Scrn (Negative) Ur Amphetamines Screen (Negative) U Methamphetamines Scrn (Negative) Ur MDMA Scrn (Ecstasy) (Negative) U Benzodiazepines Scrn (Negative) Urine Cocaine Screen (Negative) U Marijuana (THC) Screen (Negative) Ethyl Alcohol ( - 10) mg/dL SARS-CoV-2 (PCR) (Negative) Blood Type O Positive Antibody Screen Negative Imaging Data CT scan - abdomen/pelvis: Radiologist's Impression: [address] [address] [address] Scan Report Signed Patient: Jaden Douglass MR#: [id number] : 1980 Acct:[id number] Age/Sex: 42 / M Date of Service: 09/25/22 Loc: ED Accession Number: [id number] ?? Procedure: CT abdomen pelvis w con Ordering Provider: Roxanna Vega D.O. PROCEDURE:? CT ABDOMEN PELVIS W CON ? INDICATIONS:? rectal bleeding, hx of fistula ? TECHNIQUE:? After the administration of oral and IV contrast, axial sections were acquired from the lung bases to the pubic symphysis.? Coronal and sagittal reformats were performed.? For radiation dose reduction, the following was used:? automated exposure control, adjustment of mA and/or kV according to patient size. ? COMPARISON:? [facility], , US ABDOMEN COMPLETE, 05/16/2022, 14:52. ? FINDINGS:? Image quality:? Excellent.? ? Lung bases:? Unremarkable.? ? Heart:? No significant findings. ? ? ABDOMEN: Liver: Diffuse fatty liver infiltration is noted.? The liver is normal in size and demonstrates no suspicious lesions. Gallbladder:? Unremarkable.? ? Biliary ducts:? Unremarkable.? ? Pancreas:? Unremarkable.? ? Spleen:? Unremarkable.? ? Adrenal Glands:? Unremarkable.? ? Kidneys and Ureters:? Along the medial aspect of the left kidney, there is an exophytic lesion seen that measures 15 Hounsfield units, which is most likely related to a mildly complex cyst.? The kidneys demonstrate normal size and enhance symmetrically.? There is no hydronephrosis. ? Stomach and Bowel:? In this patient with this given history, scrutiny is given to the rectum.? There is mild asymmetric wall thickening seen involving the rectum on the left side, as on series 2, image 84. Mild distal colonic diverticulosis is seen, without findings of active diverticulitis. Mild wall thickening can be seen involving the ascending colon, as on series 4, image 34. The colon otherwise is unremarkable. No dilated loops of small bowel are seen. The stomach is relatively decompressed.? Prior appendectomy. Peritoneum:? No abnormal intraperitoneal fluid.? No free air.? ? Ventral Wall: ? No hernia.? Abdominal Nodes:? No retroperitoneal or mesenteric adenopathy by size criteria.? Vessels:? Aorta and inferior vena cava are normal in size.? Incidental note is made of a circumaortic left renal vein.? ? PELVIS: Pelvic Organs:? Unremarkable.? ? Bladder:? Unremarkable.? ? Pelvic Nodes: No enlarged lymph nodes.? Miscellaneous: No inguinal hernias are seen. ? ? ? Bones:? Mild dextroconvex scoliotic curvature is seen.? Remote, anterior wedge deformities can be seen involving T11, T12, and L1.? No acute features are seen.? ? ? IMPRESSION:? ? Mild asymmetric wall thickening can be seen of the rectum.? This may be artifactual, although please consider a follow-up colonoscopy, when clinically appropriate. ? Mild distal colonic diverticulosis is seen, without findings of active diverticulitis. ? There is mild generalized wall thickening seen involving the ascending colon.? Please correlate with potential infectious and inflammatory causes of colitis. ? ? ? Incidental note is made of: Diffuse fatty liver infiltration Simple appearing left renal cyst Circumaortic left renal vein Thoracolumbar junction anterior wedge deformities, without acute features Dextroconvex scoliotic curvature ? Dictated by: Daniel Shelby M.D. on 09/25/2022 at 8:26 ? ? Approved by: Daniel Shelby M.D. on 09/25/2022 at 8:31 MDM Narrative Medical decision making narrative: Appropriate for social work evaluation. No CT imaging indicated this time. Patient source of rectal bleeding is likely hemorrhoids. It is painful bleeding at the anus. Hemoglobin/CBC is stable. Vital signs are stable. No tachycardia. 09/25/2022 Mank: Patient signed out to myself by Dr. Queen, patient seen independently evaluated. Patient has history of hypertension, dyslipidemia, chronic kidney disease and is aware of his elevated LFTs. He notes he is had prior fistulas. Patient did have physical exam area was evaluated. Patient suspected have hemorrhoids with painful bleeding at the anus. Patient notes that bleeding has been continuous when I evaluate he has persistent bright red slow ooze quite painful. It is not brisk but patient does actively have bleeding, active ooze. He is slightly shaky but otherwise appears well. Because of his history of fistula CT abdomen pelvis was obtained. Repeat hemoglobin is prior was at 3:30 a.m. this morning and type and screen were added on. Patient is having some alcohol withdrawal had Ativan IV which was helpful but continues to have persistent symptoms, see was been 5-6 range. Patient received a dose of IV Ativan and is receiving a 2nd dose and will re-evaluate. Patient is currently seeking detox he had an appointment to be seen in [place] but came here because of the rectal bleeding. MULTIPLE DRUM SANDER HELPER consult in place. I did speak with Dr. Smith with General surgery, he has persistent oozing, has dropped his hemoglobin from 11-10 over several hours. He does not appear otherwise unstable. Discussed with hospitalist will keep for observation for alcohol withdrawal and persistent rectal bleeding with thickening of the rectum. Dr. Smith will likely take for scope tomorrow. Plan for prep today. Patient accepted by Dr. Paul hospitalist. Discharge Plan Departure Patient Disposition: Admitted as Observation Clinical Impression: Rectal bleeding, Alcohol abuse, Colitis Admit Date/Time: 09/25/22 15:38 Admit Provider: Jared Paul
[2022-09-25 03:27] LABS: Add Manual Diff / Slide Review NO; Basophils Absolute Auto 0 /uL (0-100); Basophils Percent Auto 0.3 % (0-2); Eosinophils Absolute Auto 0 /uL (0-450); Hematocrit 34.2 % (41-53); Hemoglobin 11.5 g/dL (13.5-17.5); Lymphocytes Absolute Auto 500 /uL (1100-4500); Lymphocytes Percent Auto 8.9 % (25-40); Mean Corpuscular HGB Conc 33.4 % (30-36); Mean Corpuscular Volume 101.6 fL (80-100); Monocytes Absolute Auto 800 /uL (0-900); Monocytes Percent Auto 13.7 % (3-14); Neutrophils Absolute Auto 4600 /uL (1500-7000); Neutrophils Percent Auto 77.1 % (50-75); Platelet Count 131 X10^3/uL (150-400); Red Blood Cell Count 3.37 X10^6/uL (4.5-5.9); Red Cell Distribution Width 15.9 % (11.6-14.8)
[2022-09-25 03:37] LABS: Acetaminophen < 10 ug/mL (10-30); Alanine Aminotransferase 340 IU/L (<50); Albumin Globulin Ratio 1.5 (1.0-2.8); Alkaline Phosphatase 81 U/L (38-126); Aspartate Aminotransferase 351 IU/L (17-59); BUN Creatinine Ratio 22.2 (6-22); Bilirubin Total 1.9 mg/dL (0.2-1.3); Blood Urea Nitrogen 38 mg/dL (9-20); Calcium 9.2 mg/dL (8.4-10.2); Carbon Dioxide 12 mmol/L (22-32); Chloride 94 mmol/L (98-107); Estimated Glomerular Filt Rate 50 mL/min (>60); Ethanol (ETOH) 59 mg/dL; Globulin 3.3 g/dL (1.7-4.1); Glucose 101 mg/dL (70-100); HEMOLYSIS < 15 (0-50); Sodium 133 mmol/L (137-145); Total Protein 8.3 g/dL (6.3-8.2)
[2022-09-25] MEDS: LORazepam 2 MG/ML INJ 1 MG IV ×5 (04:26→21:19)
[2022-09-25 08:27] LABS: COVID19 -Nasal RAPID Negative (Negative)
--- NOTE | 2022-09-25 08:52 | DI.CT.S_ITS ---
PROCEDURE: CT ABDOMEN PELVIS W CON INDICATIONS: rectal bleeding, hx of fistula TECHNIQUE: After the administration of oral and IV contrast, axial sections were acquired from the lung bases to the pubic symphysis. Coronal and sagittal reformats were performed. For radiation dose reduction, the following was used: automated exposure control, adjustment of mA and/or kV according to patient size. COMPARISON: [facility], , US ABDOMEN COMPLETE, 05/16/2022, 14:52. FINDINGS: Image quality: Excellent. Lung bases: Unremarkable. Heart: No significant findings. ABDOMEN: Liver: Diffuse fatty liver infiltration is noted. The liver is normal in size and demonstrates no suspicious lesions. Gallbladder: Unremarkable. Biliary ducts: Unremarkable. Pancreas: Unremarkable. Spleen: Unremarkable. Adrenal Glands: Unremarkable. Kidneys and Ureters: Along the medial aspect of the left kidney, there is an exophytic lesion seen that measures 15 Hounsfield units, which is most likely related to a mildly complex cyst. The kidneys demonstrate normal size and enhance symmetrically. There is no hydronephrosis. Stomach and Bowel: In this patient with this given history, scrutiny is given to the rectum. There is mild asymmetric wall thickening seen involving the rectum on the left side, as on series 2, image 84. Mild distal colonic diverticulosis is seen, without findings of active diverticulitis. Mild wall thickening can be seen involving the ascending colon, as on series 4, image 34. The colon otherwise is unremarkable. No dilated loops of small bowel are seen. The stomach is relatively decompressed. Prior appendectomy. Peritoneum: No abnormal intraperitoneal fluid. No free air. Ventral Wall: No hernia. Abdominal Nodes: No retroperitoneal or mesenteric adenopathy by size criteria. Vessels: Aorta and inferior vena cava are normal in size. Incidental note is made of a circumaortic left renal vein. PELVIS: Pelvic Organs: Unremarkable. Bladder: Unremarkable. Pelvic Nodes: No enlarged lymph nodes. Miscellaneous: No inguinal hernias are seen. Bones: Mild dextroconvex scoliotic curvature is seen. Remote, anterior wedge deformities can be seen involving T11, T12, and L1. No acute features are seen. IMPRESSION: Mild asymmetric wall thickening can be seen of the rectum. This may be artifactual, although please consider a follow-up colonoscopy, when clinically appropriate. Mild distal colonic diverticulosis is seen, without findings of active diverticulitis. There is mild generalized wall thickening seen involving the ascending colon. Please correlate with potential infectious and inflammatory causes of colitis. Incidental note is made of: Diffuse fatty liver infiltration Simple appearing left renal cyst Circumaortic left renal vein Thoracolumbar junction anterior wedge deformities, without acute features Dextroconvex scoliotic curvature Dictated by: Daniel Shelby M.D. on 09/25/2022 at 8:26 Approved by: Daniel Shelby M.D. on 09/25/2022 at 8:31
[2022-09-25 09:01] LABS: Appearance Urine UA CLEAR; Bilirubin Urine UA NEGATIVE (NEGATIVE); Color Urine UA YELLOW; Glucose Urine UA NEGATIVE (Negative); Ketones Urine UA 1+ (NEGATIVE); Leukocyte Esterase Urine UA NEGATIVE (NEGATIVE); Nitrite Urine UA NEGATIVE (Negative); Occult Blood Urine UA TRACE-LYSED (Negative); Protein Urine UA NEGATIVE (Negative); Urobilinogen Urine UA 0.2 E.U./dL (0.2)
[2022-09-25 09:02] LABS: Hemoglobin 10.7 g/dL (13.5-17.5)
[2022-09-25 09:05] LABS: UR Morphine/Opiate cutoff 300 Negative (Negative); Ur Creatinine Normal (Normal); Ur Specific Gravity Normal (Normal); Urine Amphetamines Negative (Negative); Urine Barbiturates Negative (Negative); Urine Benzodiazepines Negative (Negative); Urine Cocaine Negative (Negative); Urine MDMA Negative (Negative); Urine Methadone Negative (Negative); Urine Methamphetamines Negative (Negative); Urine Oxycodone Negative (Negative); Urine Phencyclidine Negative (Negative); Urine Tetrahydrocannabinol Negative (Negative); Urine Tricyclic Antidepressant Negative (Negative); Urine pH Normal (Normal)
[2022-09-25 09:11] LABS: Bacteria Urine Occasional (0-1); Culture Indicated Urine Cult Not Indicated; RBC Urine 0-1/HPF (0-5/HPF); Squamous Epithelial Cell Urine 0-1 /HPF (0-5/HPF); WBC Urine 0-1/HPF (0-5/HPF)
[2022-09-25] MEDS: AMOXICILLIN/CLAV 875/125 MG 1 TAB PO (09:59)
[2022-09-25] MEDS: MORPHINE 4 MG/ML INJ IV (12:38)
[2022-09-25] MEDS: ONDANSETRON 4 MG/2 ML INJ IV ×2 (12:46→21:13)
--- NOTE | 2022-09-25 14:51 | CM.SWNOTE ---
Addendum entered by Carolynn Deshpande 09/25/22 15:21: SENIOR BOOKKEEPER calls [facility] regarding patient's admission and potential for detox after medical clearance. It is reported that they cannot accept patient's for d/c after 48 hours of ETOH use. Plan: Encourage patient to seek outpatient [facility] resources upon medical clearance for d/c to home. This SENIOR BOOKKEEPER provided patient with [facility] resources. Carolynn Deshpande, [facility] [employer] Original Note: DCP/ SENIOR BOOKKEEPER Assessment Patient is 42 y/o male who presents to ED via EMS due to concern for rectal bleeding after excessive ETOH consumption, Patient's BAL is 59 upon arrival to ED. Patient has hx of GERD, Hypertension, Hypercholesteremia, PTSD, ETOH use. Per Krystal, patient was diagnosed with Acute Kidney injury on 08/21/22 at [facility] leading to a short inpatient stay. Patient's PCP is Rayray José with the [facility] in [place], Patient has [facility] and [facility] insurance. SENIOR BOOKKEEPER enters room to meet with patient. Patient presents as A/Ox4. Patient endorses hx of daily ETOH drinking about a 5th of vodka daily. It is reported that patient's last drink was 2 days ago. Patient endorses he was on his way to an appt with [facility] services for intake appt in [place] today but canceled appt due to rectal bleeding and called EMS for transport to ED. Patient drives his own vehicle and is independent with ADLs at baseline. Patient endorses that due to his substance use he will stay in bed for days at a time. Patient endorses hx of drinking ETOH over the last 25 years, patient endorses hx of AA, IOP and detox in 2006 in [place] at the [facility] and reports a poor experience. Patient endorses he has been following up with his PCP to address ETOH use and anxiety but has not found medication that has worked. Patient endorses hx of rx for Naltrexone. Patient endorses that his recently left him about 2 weeks ago and he is currently living alone in his home in [place]. Patient denies local supports, patient is a retired [employer] currently on disability since last year. Patient endorses he has friends he can contact via phone. Patient denies SI and HI. Per EMR, patient has hx of seizure withdrawals in 2019, patient presented today with withdrawals symptoms: anxiety & shakes, CIWA score most recently: 5. SENIOR BOOKKEEPER discusses detox options and SENIOR BOOKKEEPER discusses the detox facility in [facility] and patient presents as interested. SENIOR BOOKKEEPER calls [facility] and it is reported that they have beds tomorrow at 3 AM. It is reported that they do not accept patients past 24 hours of last substance use unless they have hx of seizures. SENIOR BOOKKEEPER endorses patient's hx of seizures. SENIOR BOOKKEEPER faxes clinicals for review. SENIOR BOOKKEEPER reviews patient with ED provider Dr. Vega who reports that patient has been accepted by hospitalist Dr. Paul due to concern for rectal bleeding and ETOH withdrawal and will be seen by surgeon Dr. Smith regarding rectal bleeding. SENIOR BOOKKEEPER does proceed with patient's intake screening at [facility] due to upcoming procedure and awaiting medical clearance. SENIOR BOOKKEEPER provides patient with contact information for [facility] Stabilization center, other detox and [facility] as well as [facility]. SENIOR BOOKKEEPER encourages patient to continue with [facility] and reschedule appt as well. Plan: Patient awaiting scope procedure from Dr. Smith tomorrow. DCP to f/u with [facility] upon medical clearance d/c. DIOGENES Vee Discharge Planning/Care Management CM Discharge Assessment Start: 09/25/22 14:47 Freq: Status: Active Protocol: Document 09/25/22 14:48 LN (Rec: 09/25/22 14:50 LN [id number]) Discharge Planning Assessment Assigned Scientific Software Developer DIOGENES Pradhan Advance Directives? No History Provided By Patient,Medical Record Has Patient been admitted in last 30 No days? Prior Living Arrangements House Household Members none Comment Spouse moved out recently. Type of transporation used prior to Drives own vehicle admit Independent with ADL's Yes Is patient alert and oriented? Yes Transportation Arrangement Patient arrived by EMS, patient has preference for [facility] in [place]. Additional Comment Patient interested in detox upon d/c Please Provide Date Initial DC 09/25/22 Assessment Was Performed
[2022-09-25 15:49] LABS: Magnesium 1.2 mg/dL (1.6-2.3)
[2022-09-25] MEDS: PEG3350/SOD SULF,BICARB,CL/KCL 4,000 ML SOLUTION 4000 ML PO (16:52)
[2022-09-25] MEDS: FOLIC ACID 1 MG TABLET PO (16:59)
[2022-09-25] MEDS: PANTOPRAZOLE 40 MG VIAL IV (16:59)
[2022-09-25] MEDS: MULTIVITAMIN 1 TABLET 1 TAB PO (17:00)
[2022-09-25] MEDS: ACETAMINOPHEN 325 MG TABLET 650 MG PO (17:06)
[2022-09-25] MEDS: THIAMINE 100 MG TABLET PO (17:06)
[2022-09-25] MEDS: OXYCODONE IR 5 MG TABLET PO (17:06)
[2022-09-25] MEDS: SODIUM CHLORIDE 0.9% 1,000 ML 100 ML IV (17:07)
--- NOTE | 2022-09-25 17:39 | PM.HP.1 ---
History of Present Illness History of Present Illness Date Patient Seen: 09/25/22 Time Patient Seen: 17:40 Chief complaint: Rectal Bleed Narrative: Jaden Bullard is a 42-year-old male with past medical history of alcohol abuse of a 5th of vodka daily, hypertension, hyperlipidemia, sleep apnea with unknown CPAP compliance and intersphincteric fistula with associated perianal abscess in 2019 who presents with 3 days of hematochezia and in alcohol withdrawal. Patient states his last drink of vodka was 3 days ago. He also during that time developed bright red bloody stools, no black stools. He has never had bloody stools before. He states it hurts to defecate. Patient is struggled with alcoholism for several years while in the [place] and even through intense alcohol treatment through the [place] several years ago. Has been in and out of a a. He is interested in inpatient detox. In the ED patient's hemoglobin dropped from 11.5 to 10.[address] Smith general surgery consulted for scope. Patient History Medical History Anal lesion Elevated ferritin GERD (gastroesophageal reflux disease) Gout HTN (hypertension) Hypercholesteremia Sleep apnea Surgical History History of appendectomy History of surgery (09/15/18) Hx of wisdom tooth extraction Family & Social History Family History Mother Hypertension Social History: household members none Prior Living Arrangements House Safety & Behavioral: Feels Safe in Current Yes Environment Been Physically Hurt or No Threatened By a Person Tobacco & Substance use: Smoking Status Never smoker alcohol intake current alcohol intake frequency 3 or more drinks per day Substance Use Type does not use Meds Home Medications and Allergies Home Medications Medication Instructions Recorded Confirmed Type amlodipine 2.5 mg tablet 5 mg PO DAILY 09/09/18 08/01/20 History atorvastatin 20 mg PO DAILY 09/09/18 08/01/20 History lisinopril 40 mg PO DAILY 09/09/18 08/01/20 History metoprolol tartrate 50 mg PO DAILY 09/09/18 08/01/20 History allopurinol 100 mg tablet 300 mg PO DAILY 08/12/20 09/23/20 History docusate sodium 100 mg capsule 100 mg PO BID #40 caps 07/03/20 08/01/20 Rx (Colace) oxycodone 5 mg tablet 5 mg PO Q6H PRN pain #30 tabs 07/03/20 08/01/20 Rx lorazepam 1 mg tablet (Ativan) 1 mg PO TID PRN alcohol withdrawal 05/16/22 Rx #12 tabs Allergies Allergy/AdvReac Type Severity Reaction Status Date / Time No Known Drug Allergies Allergy Verified 05/16/22 10:25 Review of Systems Review of Systems Narrative: All other systems reviewed with the patient and are negative unless otherwise stated. Exam Vital Signs (past 8 hours): - 09/25/22 10:00 09/25/22 10:30 09/25/22 10:30 Temperature Pulse Rate 82 75 Respiratory Rate 23 27 H Blood Pressure 146/74 H Pulse Oximetry 96 Oxygen Flow Rate 09/25/22 11:00 09/25/22 11:00 09/25/22 12:00 Temperature Pulse Rate 77 82 Respiratory Rate 19 Blood Pressure 153/72 H Pulse Oximetry 96 93 Oxygen Flow Rate 09/25/22 12:01 09/25/22 12:01 09/25/22 12:30 Temperature Pulse Rate 79 84 Respiratory Rate 21 Blood Pressure 161/74 H Pulse Oximetry 98 98 Oxygen Flow Rate 09/25/22 12:50 09/25/22 12:50 09/25/22 13:00 Temperature Pulse Rate 74 82 Respiratory Rate 16 22 Blood Pressure 156/72 H Pulse Oximetry 94 95 Oxygen Flow Rate 09/25/22 13:30 09/25/22 13:30 09/25/22 14:00 Temperature Pulse Rate 88 Respiratory Rate 18 Blood Pressure 139/67 118/57 L Pulse Oximetry 98 Oxygen Flow Rate 09/25/22 14:00 09/25/22 14:30 09/25/22 14:30 Temperature Pulse Rate 72 76 Respiratory Rate 17 17 Blood Pressure 126/64 Pulse Oximetry 93 93 Oxygen Flow Rate 09/25/22 15:00 09/25/22 15:00 09/25/22 16:00 Temperature 99 F Pulse Rate 77 79 Respiratory Rate 17 19 Blood Pressure 127/60 115/59 L Pulse Oximetry 94 96 Oxygen Flow Rate 0 Oxygen Delivery Method Room Air Oxygen Flow Rate 0 Narrative Exam Narrative: GEN: no acute distress, drowsy, blood shot eyes HEENT: moist mucous membranes, PERRL NECK: trachea midline, no JVD CV: regular rate and rhythm, no murmurs PULM: clear bilaterally ABD: soft, nontender, nondistended, no organomegaly EXT: warm and well perfused with no edema NEURO: awake, alert, oriented, mild tremors Objective Labs Result Diagrams: 09/25/22 08:50 09/25/22 03:15 Labs: Laboratory Results - last 24 hr 09/25/22 09/25/22 09/25/22 03:15 03:15 03:15 WBC 6.0 RBC 3.37 L Hgb 11.5 L Hct 34.2 L MCV 101.6 H MCH 34.0 MCHC 33.4 RDW 15.9 H Plt Count 131 L Neut % (Auto) 77.1 H Lymph % (Auto) 8.9 L [place] % (Auto) 13.7 Eos % (Auto) 0.0 L Baso % (Auto) 0.3 Neut # (Auto) 4600 Lymph # (Auto) 500 L [place] # (Auto) 800 Eos # (Auto) 0 Baso # (Auto) 0 Sodium 133 L Potassium 5.0 Chloride 94 L Carbon Dioxide 12 L BUN 38 H Creatinine 1.71 H Estimated GFR 50 L BUN/Creatinine Ratio 22.2 H Glucose 101 H Calcium 9.2 Magnesium Total Bilirubin 1.9 H AST 351 H ALT 340 H Alkaline Phosphatase 81 Total Protein 8.3 H Albumin 5.0 Globulin 3.3 Albumin/Globulin Ratio 1.5 TSH 0.70 Urine Color Urine Appearance Urine pH Ur Specific [place] Urine Protein Urine Glucose (UA) Urine Ketones Urine Occult Blood Urine Nitrate Urine Bilirubin Urine Urobilinogen Ur Leukocyte Esterase Urine RBC Urine WBC Ur Squamous Epith Cells Urine Bacteria Ur Culture Indicated? U Opiates 300ng/mL cut Ur Oxycodone Screen Urine Methadone Screen Acetaminophen < 10 Ur Barbiturates Screen U Tricyclic Antidepress Ur Phencyclidine Scrn Ur Amphetamines Screen U Methamphetamines Scrn Ur MDMA Scrn (Ecstasy) U Benzodiazepines Scrn Urine Cocaine Screen U Marijuana (THC) Screen Ethyl Alcohol 59 H SARS-CoV-2 (PCR) Blood Type Antibody Screen 09/25/22 09/25/22 09/25/22 07:50 08:43 08:43 WBC RBC Hgb Hct MCV MCH MCHC RDW Plt Count Neut % (Auto) Lymph % (Auto) [place] % (Auto) Eos % (Auto) Baso % (Auto) Neut # (Auto) Lymph # (Auto) [place] # (Auto) Eos # (Auto) Baso # (Auto) Sodium Potassium Chloride Carbon Dioxide BUN Creatinine Estimated GFR BUN/Creatinine Ratio Glucose Calcium Magnesium Total Bilirubin AST ALT Alkaline Phosphatase Total Protein Albumin Globulin Albumin/Globulin Ratio TSH Urine Color Yellow Urine Appearance Clear Urine pH 5.0 Ur Specific [place] 1.010 Urine Protein Negative Urine Glucose (UA) Negative Urine Ketones 1+ H Urine Occult Blood Trace-lysed Urine Nitrate Negative Urine Bilirubin Negative Urine Urobilinogen 0.2 Ur Leukocyte Esterase Negative Urine RBC 0-1/hpf Urine WBC 0-1/hpf Ur Squamous Epith Cells 0-1 /hpf Urine Bacteria Occasional (0-1) Ur Culture Indicated? Cult not indicated U Opiates 300ng/mL cut Negative Ur Oxycodone Screen Negative Urine Methadone Screen Negative Acetaminophen Ur Barbiturates Screen Negative U Tricyclic Antidepress Negative Ur Phencyclidine Scrn Negative Ur Amphetamines Screen Negative U Methamphetamines Scrn Negative Ur MDMA Scrn (Ecstasy) Negative U Benzodiazepines Scrn Negative Urine Cocaine Screen Negative U Marijuana (THC) Screen Negative Ethyl Alcohol SARS-CoV-2 (PCR) Negative Blood Type Antibody Screen 09/25/22 09/25/22 09/25/22 08:50 08:50 14:15 WBC RBC Hgb 10.7 L Hct 31.0 L MCV MCH MCHC RDW Plt Count Neut % (Auto) Lymph % (Auto) [place] % (Auto) Eos % (Auto) Baso % (Auto) Neut # (Auto) Lymph # (Auto) [place] # (Auto) Eos # (Auto) Baso # (Auto) Sodium Potassium Chloride Carbon Dioxide BUN Creatinine Estimated GFR BUN/Creatinine Ratio Glucose Calcium Magnesium 1.2 L Total Bilirubin AST ALT Alkaline Phosphatase Total Protein Albumin Globulin Albumin/Globulin Ratio TSH Urine Color Urine Appearance Urine pH Ur Specific [place] Urine Protein Urine Glucose (UA) Urine Ketones Urine Occult Blood Urine Nitrate Urine Bilirubin Urine Urobilinogen Ur Leukocyte Esterase Urine RBC Urine WBC Ur Squamous Epith Cells Urine Bacteria Ur Culture Indicated? U Opiates 300ng/mL cut Ur Oxycodone Screen Urine Methadone Screen Acetaminophen Ur Barbiturates Screen U Tricyclic Antidepress Ur Phencyclidine Scrn Ur Amphetamines Screen U Methamphetamines Scrn Ur MDMA Scrn (Ecstasy) U Benzodiazepines Scrn Urine Cocaine Screen U Marijuana (THC) Screen Ethyl Alcohol SARS-CoV-2 (PCR) Blood Type O Positive Antibody Screen Negative Assessment & Plan Assessment & Plan narrative: # acute lower GI bleed with blood loss anemia -history of intersphincteric fistula with associated perianal abscess in 2020, could be due to possible anal fissure, hemorrhoid versus diverticulosis seen on CT scan. No melena. -Dr. Smith, general surgery consulted and will perform colonoscopy tomorrow, prep tonight -NPO at midnight -avoid blood thinners -trend Hgb, dipped from 11.7 to 10.6 over 5 hours # acute alcohol withdrawal -drinks a 5th of vodka daily, last drink 3 days ago. History of withdrawal seizures 4 months ago at would be general. -initiate CIWA protocol, likely out of severe withdrawal window -multivitamin and thiamine -medical social work consult for possible detox after discharge # acute alcoholic hepatitis -bilirubin 1.9, AST 351 and ALT 340 -trend LFTs -avoid hepatotoxic agents # hypomagnesemia -likely secondary to poor nutrition from alcoholism -magnesium 1.2 -give 4 g and monitor # possible CKD -creatinine 1.71 with GFR of 50 -unknown baseline -continue IV fluids -avoid nephrotoxic agents -monitor # hypertension, chronic -continue home metoprolol succinate and amlodipine, hold home lisinopril secondary to elevated creatinine # hyperlipidemia, chronic -hold home Lipitor secondary to elevated LFT's Code status is full code. COVID negative. DVT prophylaxis with SCDs. Proxy is Rebecca. I have reviewed home meds and used all available resources to reconcile the home meds. This patient will be admitted as inpatient and will require greater than 2 midnights of hospital time to treat acute alcohol withdrawal and lower GI bleed. Time Spent With Patient Critical Care time: I spent a total of [] minutes of critical care time on this patient's care today; this time is exclusive of procedural time. Quality VTE Deep Vein Thrombosis/Pulmonary Embolism Present on Admission: No
[2022-09-25] MEDS: MAGNESIUM SULFATE 4 GM/100 ML PIGGYBACK IV (18:25)
[2022-09-25 18:44] LABS: Prothrombin Time 11.4 SECONDS (10.1-12.7)
[2022-09-25] MEDS: METOPROLOL ER 50 MG TABLET PO (21:30)
[2022-09-26] VITALS (11 sets, daily range): BP systolic 100–160; BP diastolic 52–75; PULSE 60–94; RESP 14–20; TEMP 36.3–37.2; O2SAT 95–100; BMI 32.4
[2022-09-26] MEDS: OXYCODONE IR 5 MG TABLET PO ×3 (01:53→20:51)
[2022-09-26] MEDS: LORazepam 2 MG/ML INJ IV (04:29)
[2022-09-26 05:44] LABS: Add Manual Diff / Slide Review NO; Basophils Absolute Auto 0 /uL (0-100); Basophils Percent Auto 0.3 % (0-2); Eosinophils Absolute Auto 0 /uL (0-450); Eosinophils Percent Auto 0.5 % (2-4); Hematocrit 28.1 % (41-53); Hemoglobin 9.6 g/dL (13.5-17.5); Lymphocytes Absolute Auto 600 /uL (1100-4500); Lymphocytes Percent Auto 14.4 % (25-40); Mean Corpuscular HGB Conc 34.4 % (30-36); Mean Corpuscular Hemoglobin 34.5 PG (26-34); Mean Corpuscular Volume 100.4 fL (80-100); Monocytes Absolute Auto 500 /uL (0-900); Monocytes Percent Auto 13.4 % (3-14); Neutrophils Absolute Auto 2800 /uL (1500-7000); Neutrophils Percent Auto 71.4 % (50-75); Platelet Count 89 X10^3/uL (150-400); Red Cell Distribution Width 15.5 % (11.6-14.8); White Blood Cell Count 3.9 X10^3/uL (4.5-11.0)
[2022-09-26 05:52] LABS: Magnesium 1.7 mg/dL (1.6-2.3)
[2022-09-26 05:53] LABS: Alanine Aminotransferase 262 IU/L (<50); Albumin 4.4 g/dL (3.5-5.0); Albumin Globulin Ratio 1.4 (1.0-2.8); Alkaline Phosphatase 89 U/L (38-126); Aspartate Aminotransferase 283 IU/L (17-59); Bilirubin Total 1.7 mg/dL (0.2-1.3); Blood Urea Nitrogen 22 mg/dL (9-20); Calcium 9.4 mg/dL (8.4-10.2); Carbon Dioxide 25 mmol/L (22-32); Chloride 98 mmol/L (98-107); Estimated Glomerular Filt Rate > 60 mL/min (>60); Globulin 3.1 g/dL (1.7-4.1); Glucose 126 mg/dL (70-100); HEMOLYSIS < 15 (0-50); Potassium 4.6 mmol/L (3.4-5.1); Sodium 134 mmol/L (137-145); Total Protein 7.5 g/dL (6.3-8.2)
--- NOTE | 2022-09-26 06:48 | PC.NURSE ---
Patient took all of Golytely prep for colonoscopy, however patient took extra time between cups and didn't finish prep until 0400. RN encouraged patient to drink it faster and explained reasons why, however patient wasn't cooperative with instructions. Coordinator is aware and stated pt is scheduled for 1130 procedure. Patient had nothing else to drink since midnight. BMs are liquid yellow with specs of pink and light ramachandran mucous like threads and flakes. Patient was incontinent of stool mulitple times in bed. Patient took apart IV tubing, unscrewing it, and dislodged/partly removed his IV in the process when he got up to the BR. CIWA = 9, Ativan 1 mg IV given, CIWA = 5. CIWA again 9, Ativan 1 mg IV given, CIWA = 4. Patient sleeping at this time.
[2022-09-26] MEDS: LORazepam 2 MG/ML INJ 1 MG IV ×3 (09:33→20:52)
[2022-09-26] MEDS: ONDANSETRON 4 MG/2 ML INJ IV (10:33)
--- NOTE | 2022-09-26 10:53 | SUR.HOLD ---
Assisted patient to the bathroom without difficulty; states nausea better; slight headache voiced; slight tremors noted. GCS 15.
--- NOTE | 2022-09-26 11:09 | PM.CN ---
History of Present Illness Consult details Date Patient Seen: 09/26/22 Time Patient Seen: 11:09 Chief complaint: Rectal Bleed Reason for consult: rectal bleeding Narrative: Altered mental status at time of interview, partly ETOH withdrawal and Ativan. Persistent rectal bleeding, anemia, thrombocytopenia, liver failure. Bleeding has been going on for a week. 25 years of drinking heavy, not every day. No family history for colon cancer no previous rectal bleeding Meds Home Medications and Allergies Home Medications Medication Instructions Recorded Confirmed Type amlodipine 2.5 mg tablet 5 mg PO DAILY 09/09/18 08/01/20 History atorvastatin 20 mg PO DAILY 09/09/18 08/01/20 History lisinopril 40 mg PO DAILY 09/09/18 08/01/20 History metoprolol tartrate 50 mg PO DAILY 09/09/18 08/01/20 History allopurinol 100 mg tablet 300 mg PO DAILY 06/20/20 08/01/20 History docusate sodium 100 mg capsule 100 mg PO BID #40 caps 07/03/20 08/01/20 Rx (Colace) oxycodone 5 mg tablet 5 mg PO Q6H PRN pain #30 tabs 07/03/20 08/01/20 Rx lorazepam 1 mg tablet (Ativan) 1 mg PO TID PRN alcohol withdrawal 05/16/22 Rx #12 tabs Allergies Allergy/AdvReac Type Severity Reaction Status Date / Time No Known Drug Allergies Allergy Verified 05/16/22 10:25 Review of Systems Review of Systems ROS: Yes All systems reviewed with the patient and are negative except as otherwise documented Exam Vital Signs (past 8 hours): - 09/26/22 04:00 09/26/22 05:22 09/26/22 09:35 Temperature 97.3 F L Pulse Rate 77 60 73 Respiratory Rate 18 16 Blood Pressure 138/68 136/59 L 127/69 Pulse Oximetry 96 Oxygen Delivery Method Oxygen Flow Rate 0 09/26/22 10:26 Temperature Pulse Rate Respiratory Rate Blood Pressure Pulse Oximetry Oxygen Delivery Method Room Air Oxygen Flow Rate Oxygen Delivery Method Room Air Oxygen Flow Rate 0 Const General: cooperative, comfortable and disheveled Nutritional Appearance: well nourished [facility] Head: normal to inspection, normocephalic and atraumatic Eyes General: appearance normal, both eyes and all related structures Sclera: scleral abnormality (jaundice) bilaterally Pupils: pinpoint Neck Neck: trachea midline Chest Chest: normal inspection of the chest Resp Effort & Inspection: normal respiratory effort and able to speak in complete sentences Cardio Rate: regular rate Rhythm: regular rhythm GI Inspection: normal to inspection Palpation: soft Skin General: no rashes or lesions noted and jaundice Neuro General: patient awake, patient oriented x3 and other (sedated with Ativan) Extrem General: normal to inspection and full ROM Psych Appearance: disheveled Mental Status: mental status grossly normal Attitude: cooperative Judgment: fair Objective Labs Result Diagrams: 09/26/22 05:01 09/26/22 05:01 Labs: Laboratory Results - last 24 hr 09/25/22 09/25/22 09/26/22 14:15 18:30 05:01 WBC RBC Hgb Hct MCV MCH MCHC RDW Plt Count Neut % (Auto) Lymph % (Auto) [place] % (Auto) Eos % (Auto) Baso % (Auto) Neut # (Auto) Lymph # (Auto) [place] # (Auto) Eos # (Auto) Baso # (Auto) PT 11.4 INR 1.0 Sodium 134 L Potassium 4.6 Chloride 98 Carbon Dioxide 25 BUN 22 H Creatinine 1.05 Estimated GFR > 60 BUN/Creatinine Ratio 21.0 Glucose 126 H Calcium 9.4 Magnesium 1.2 L Total Bilirubin 1.7 H AST 283 H ALT 262 H Alkaline Phosphatase 89 Total Protein 7.5 Albumin 4.4 Globulin 3.1 Albumin/Globulin Ratio 1.4 09/26/22 09/26/22 05:01 05:01 WBC 3.9 L RBC 2.80 L Hgb 9.6 L Hct 28.1 L MCV 100.4 H MCH 34.5 H MCHC 34.4 RDW 15.5 H Plt Count 89 L Neut % (Auto) 71.4 Lymph % (Auto) 14.4 L [place] % (Auto) 13.4 Eos % (Auto) 0.5 L Baso % (Auto) 0.3 Neut # (Auto) 2800 Lymph # (Auto) 600 L [place] # (Auto) 500 Eos # (Auto) 0 Baso # (Auto) 0 PT INR Sodium Potassium Chloride Carbon Dioxide BUN Creatinine Estimated GFR BUN/Creatinine Ratio Glucose Calcium Magnesium 1.7 Total Bilirubin AST ALT Alkaline Phosphatase Total Protein Albumin Globulin Albumin/Globulin Ratio [facility] Medical History Anal lesion Elevated ferritin GERD (gastroesophageal reflux disease) Gout HTN (hypertension) Hypercholesteremia Sleep apnea Surgical History History of appendectomy History of surgery (09/15/18) Hx of wisdom tooth extraction Family History Mother Hypertension Social History marital status: household members: none occupational status: employed Tobacco & Substance Use Smoking Status: Never smoker alcohol intake: current substance use type: does not use Assessment & Plan Assessment & Plan narrative: Rectal bleeding liver failure ETOH abuse thrombocytopenia Plan: colonoscopy with possible hemarrhoid banding COVID-19 COVID-19 status: Negative Time Spent With Patient Time with patient: less than 30 minutes Critical Care time: I spent a total of [] minutes of critical care time on this patient's care today; this time is exclusive of procedural time.
--- NOTE | 2022-09-26 11:24 | PM.OP.COLON ---
Operative Date/Time/Diagnoses Date of procedure: 09/26/22 Time of procedure: 11:24 Pre-op diagnosis: Rectal bleeding Post-op diagnosis: same Procedure & Clinicians Study performed: Colonoscopy using MAC Same procedure as scheduled: Yes Indications: Rectal bleeding Surgeon: Radha Smith Procedure Notes Procedure in detail: Preop diagnosis: Rectal bleeding Postop diagnosis: Same Operative procedure: Colonoscopy with MAC Surgeon: Fang Smith MD Findings: Prep was at times in adequate. However no large masses, mucosal changes, or diverticulosis identified. Smaller polyps could have been overlooked. Bleeding coming from skin changes in the perianal area with severe excoriation, no evidence of fistula. Procedure: Patient placed in a lateral position. Rectal exam performed showing normal tone no masses. Colonoscope inserted into the rectum and advanced to ileocecal valve with minimal difficulty. Insufflation extraction scope with the above findings. Impression: No significant hemorrhoidal disease, no polyps or masses. No diverticulosis. Focal excoriation in the perianal region with bleeding likely enhanced due to thrombocytopenia Plan: Skin barrier cream b.i.d. and as needed. Consider coagulation correction if bleeding does not stop. Specimen(s): none sent Complications: none Post-procedure Recommendations: Colonoscopy in 10 years Follow up: as needed Disposition: PACU
[2022-09-26] MEDS: MAGNESIUM CHLORIDE 64 MG TABLET 128 MG PO (12:25)
[2022-09-26] MEDS: ACETAMINOPHEN 325 MG TABLET 650 MG PO (13:12)
--- NOTE | 2022-09-26 14:16 | CM.DPC ---
DCP Cont: Met briefly with patient. Introduced self and role. Confirmed that patient resides in [place], stated, his no longer lives with him. He has stopped drinking about 3 days ago. His current provider is at [facility] in [place], he was referred through the [place]. He is wanting to have some outpatient treatment, preferrably [facility]. Mentioned [facility], it is noted that he already has information given to him by KYUNG Pradhan. P: DCP to continue to follow for any needs. Plan is home when medically stable. Lupe Salter RN/Refrigerator Assembler
--- NOTE | 2022-09-26 15:28 | DIET.CONS ---
Dietary Consultation Note Admission Date: 09/25/2022 15:38 Assessment: 42 y/o M with extensive ETOH abuse hx. PMH of HTN, HLD, LEONIDAS, GERD, gout, intersphincteric fistula. Presented to ED with bloody stool. Reports he will go >1 week without eating and only drink ETOH (5th of vodka daily). 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 ETOH withdrawal puts him at risk for severe malnutrition Additionally, endorses 8-9 days of no PO besides ETOH. According to EMR has had 9.6% weight loss over 4 months (severe). His weight 05/2022 seems like an outlier, however he reports he often will gain weight when not drinking and then loses the weight when he is drinking ETOH. Endorses feeling overall weaker when drinking because he cannot eat. Ht: 180.34 cm Wt: 105.5 kg BMI: 32.8 Last BM: 09/26/22 (09/26/22 10:26) MNA: 10 Claude Score: 18 Diet: 09/26/22 Lunch General (Regular) Diet Diet Modifications: Labs: RBC 2.80 X10^6/uL (4.5-5.9) L 09/26/22 05:01 Hgb 9.6 g/dL (13.5-17.5) L 09/26/22 05:01 Hct 28.1 % (41-53) L 09/26/22 05:01 Creatinine 1.05 mg/dL (0.66-1.25) 09/26/22 05:01 Nutrition Diagnosis: Acute on chronic severe protein calorie malnutrition r/t excessive ETOH intake reducing PO aeb inadequate PO (<50% EER from food), 9.6% weight loss in 4 months, and ETOH withdrawal. Interventions: Sending high pro ONS t EER: 2600kcals; 130g PRO per adjust BW Monitoring/Evaluations: diet and ONS tolerance, weight Electronically Signed by: Connie Rhodes 09/26/22 15:28 Clinical Dietitian [address] [id number] [place] [address]
--- NOTE | 2022-09-26 18:06 | PM.PN.1 ---
Subjective Subjective Date Patient Seen: 09/26/22 Interval history: 42-year-old gentleman with alcohol dependence, hypertension, hyperlipidemia, sleep apnea, unknown if he is CPAP compliant, and a history of intersphincteric fistula with associated perianal abscess in 2019 who was admitted with 3 days of hematochezia and alcohol withdrawal. Patient underwent colonoscopy this morning. He was found to have perianal excoriation which was likely felt to be bleeding more secondary to thrombocytopenia. He had no diverticulosis, no polyps or masses, no hemorrhoidal disease. Patient states prior to admission he had been having diarrhea for several days. He reported anal discomfort as a consequence of the diarrhea. With regard to his alcohol withdrawal, he notes he has had withdrawal seizures in the past on 2 occasions. He states both times, he was drinking less daily than he does now. He utilized 4 doses of IV lorazepam yesterday, and he has received 3 doses today. CIWA scores have overall improved. Exam Vital Signs (past 8 hours): - 09/26/22 10:26 09/26/22 11:46 09/26/22 11:51 Temperature 99 F Pulse Rate 80 72 Respiratory Rate 16 16 Blood Pressure 138/75 160/71 H Pulse Oximetry 99 100 Oxygen Delivery Method Room Air Room Air Room Air Oxygen Flow Rate 09/26/22 11:59 09/26/22 12:22 09/26/22 16:30 Temperature 97.9 F 97.6 F 98.6 F Pulse Rate 66 72 82 Respiratory Rate 14 15 18 Blood Pressure 135/66 125/70 100/52 L Pulse Oximetry 100 98 95 Oxygen Delivery Method Room Air Oxygen Flow Rate 0 0 Oxygen Delivery Method Room Air Oxygen Flow Rate 0 Narrative Exam Narrative: GEN: Adult male, mildly tremulous, Alert and oriented x 3, NAD HEENT:NC, Face symmetric CHEST: Respiratory excursions symmetric, CTAB CV: RRR, no M/R/G ABD: Soft, NT/ND, BT present in all 4 quadrants, no organomegaly or masses EXTR: warm, well perfused, no C/C/E SKIN: warm and dry, no rash NEURO: Alert and oriented x 3, nonfocal Objective Labs Result Diagrams: 09/26/22 05:01 09/26/22 05:01 Labs: Laboratory Results - last 24 hr 09/25/22 09/26/22 09/26/22 18:30 05:01 05:01 WBC 3.9 L RBC 2.80 L Hgb 9.6 L Hct 28.1 L MCV 100.4 H MCH 34.5 H MCHC 34.4 RDW 15.5 H Plt Count 89 L Neut % (Auto) 71.4 Lymph % (Auto) 14.4 L [place] % (Auto) 13.4 Eos % (Auto) 0.5 L Baso % (Auto) 0.3 Neut # (Auto) 2800 Lymph # (Auto) 600 L [place] # (Auto) 500 Eos # (Auto) 0 Baso # (Auto) 0 PT 11.4 INR 1.0 Sodium 134 L Potassium 4.6 Chloride 98 Carbon Dioxide 25 BUN 22 H Creatinine 1.05 Estimated GFR > 60 BUN/Creatinine Ratio 21.0 Glucose 126 H Calcium 9.4 Magnesium Total Bilirubin 1.7 H AST 283 H ALT 262 H Alkaline Phosphatase 89 Total Protein 7.5 Albumin 4.4 Globulin 3.1 Albumin/Globulin Ratio 1.4 09/26/22 05:01 WBC RBC Hgb Hct MCV MCH MCHC RDW Plt Count Neut % (Auto) Lymph % (Auto) [place] % (Auto) Eos % (Auto) Baso % (Auto) Neut # (Auto) Lymph # (Auto) [place] # (Auto) Eos # (Auto) Baso # (Auto) PT INR Sodium Potassium Chloride Carbon Dioxide BUN Creatinine Estimated GFR BUN/Creatinine Ratio Glucose Calcium Magnesium 1.7 Total Bilirubin AST ALT Alkaline Phosphatase Total Protein Albumin Globulin Albumin/Globulin Ratio [facility] Medical History Anal lesion Elevated ferritin GERD (gastroesophageal reflux disease) Gout HTN (hypertension) Hypercholesteremia Sleep apnea Surgical History History of appendectomy History of surgery (09/15/18) Hx of wisdom tooth extraction Family History Mother Hypertension Social History marital status: household members: none occupational status: employed Smoking Status: Never smoker alcohol intake: current substance use type: does not use Assessment & Plan Assessment & Plan narrative: Acute lower GI bleeding, secondary to focal anal excoriation in the setting of alcohol-induced thrombocytopenia Hemoglobin has been stable overall. He did decrease from 11.5 on admission down to 9.6 today. However, his baseline appears to be closer to around 9.5 based on previous labs in May of this year. No indication for transfusion. Appreciate colonoscopy and consult per Dr. Smith. Will continue with topical ointment for his anal irritation. Alcohol withdrawal Patient has previous history of seizures. He drinks a 5th of vodka daily. His last drink was 4 days prior to admission. Continue CIWA protocol. Continue multivitamin, thiamine, and lorazepam. Acute alcoholic hepatitis Total bilirubin was 1.9, AST 351, ALT 340 on admission. Now slightly improved with a bilirubin of 1.7, AST 283, ALT 262. He has no abdominal discomfort on exam. Will follow periodically. He does have leukopenia and thrombocytopenia consistent with his underlying alcohol dependence Hypo magnesemia Improved from 1.2-1.7 with repletion. We will follow periodically. Possible chronic kidney disease Creatinine was 1.71 on admission. Likely more AYDIN as now Creatinine is normal at 1.05. Chronic hypertension He is receiving amlodipine, 5 mg, lisinopril 40 mg and Toprol XL 50 mg twice daily here. Blood pressures are normotensive. Will monitor. Chronic hyperlipidemia Lipitor held in the setting of transaminitis Code status Full Prophylaxis Low Paco score Disposition Possible discharge home tomorrow Time Spent With Patient Critical Care time: I spent a total of [] minutes of critical care time on this patient's care today; this time is exclusive of procedural time. Quality VTE Deep Vein Thrombosis/Pulmonary Embolism Present on Admission: No
[2022-09-26] MEDS: MELATONIN 3 MG TABLET 6 MG PO (20:52)
[2022-09-26] MEDS: METOPROLOL ER 50 MG TABLET PO (21:00)
[2022-09-27] VITALS (8 sets, daily range): BP systolic 115–136; BP diastolic 64–74; PULSE 62–88; RESP 16–19; TEMP 36.4–36.7; O2SAT 96–100
[2022-09-27 08:53] LABS: Add Manual Diff / Slide Review NO; Basophils Absolute Auto 0 /uL (0-100); Basophils Percent Auto 0.6 % (0-2); Eosinophils Absolute Auto 0 /uL (0-450); Eosinophils Percent Auto 1.3 % (2-4); Hematocrit 27.4 % (41-53); Hemoglobin 9.2 g/dL (13.5-17.5); Lymphocytes Absolute Auto 800 /uL (1100-4500); Lymphocytes Percent Auto 25.8 % (25-40); Mean Corpuscular HGB Conc 33.8 % (30-36); Mean Corpuscular Hemoglobin 34.5 PG (26-34); Mean Corpuscular Volume 102.3 fL (80-100); Monocytes Absolute Auto 300 /uL (0-900); Monocytes Percent Auto 8.9 % (3-14); Neutrophils Absolute Auto 1900 /uL (1500-7000); Neutrophils Percent Auto 63.4 % (50-75); Platelet Count 79 X10^3/uL (150-400); Red Blood Cell Count 2.68 X10^6/uL (4.5-5.9); Red Cell Distribution Width 15.6 % (11.6-14.8)
[2022-09-27 09:03] LABS: Alanine Aminotransferase 261 IU/L (<50); Albumin 4.1 g/dL (3.5-5.0); Albumin Globulin Ratio 1.4 (1.0-2.8); Alkaline Phosphatase 118 U/L (38-126); Aspartate Aminotransferase 293 IU/L (17-59); BUN Creatinine Ratio 12.2 (6-22); Bilirubin Total 0.9 mg/dL (0.2-1.3); Blood Urea Nitrogen 10 mg/dL (9-20); Calcium 9.2 mg/dL (8.4-10.2); Carbon Dioxide 27 mmol/L (22-32); Chloride 100 mmol/L (98-107); Estimated Glomerular Filt Rate > 60 mL/min (>60); Glucose 110 mg/dL (70-100); HEMOLYSIS < 15 (0-50); Magnesium 1.2 mg/dL (1.6-2.3); Potassium 4.6 mmol/L (3.4-5.1); Sodium 136 mmol/L (137-145); Total Protein 7.1 g/dL (6.3-8.2)
[2022-09-27] MEDS: MULTIVITAMIN 1 TABLET 1 TAB PO (09:40)
[2022-09-27] MEDS: FOLIC ACID 1 MG TABLET PO (09:40)
[2022-09-27] MEDS: THIAMINE 100 MG TABLET PO (09:40)
[2022-09-27] MEDS: allopurinoL 300 MG TABLET PO (09:40)
[2022-09-27] MEDS: AMLODIPINE 5 MG TABLET PO (09:40)
[2022-09-27] MEDS: METOPROLOL ER 50 MG TABLET PO ×2 (09:40→20:58)
--- NOTE | 2022-09-27 13:18 | PM.PN.1 ---
Subjective Subjective Interval history: 42-year-old gentleman with alcohol dependence, hypertension, hyperlipidemia, sleep apnea, unknown if he is CPAP compliant, and a history of intersphincteric fistula with associated perianal abscess in 2019 who was admitted with 4 days of hematochezia and alcohol withdrawal.? He was found to have focal excoriation of the EMS, likely exacerbated by thrombocytopenia. Patient reports he has not had a bowel movement since his colonoscopy. He states he is feeling better but does forget to use the ointment on his anal area. He does admit to continuing to feel anxious. He notes he has had chronic anxiety. He plans on contacting a outpatient alcohol detox program upon his discharge. He lives in [place]. He is but from his and he currently lives alone. Exam Vital Signs (past 8 hours): - 09/27/22 08:00 09/27/22 09:40 09/27/22 10:00 Temperature 97.5 F L Pulse Rate 69 Respiratory Rate 18 Blood Pressure 136/74 136/74 127/64 Pulse Oximetry 100 09/27/22 09:00 Temperature 97.5 F L Pulse Rate 62 Respiratory Rate 16 Blood Pressure 136/74 Pulse Oximetry 100 Oxygen Delivery Method Room Air Oxygen Flow Rate 0 Narrative Exam Narrative: GEN:? Adult male, mildly tremulous, Alert and oriented x 3, NAD HEENT:NC, Face symmetric CHEST: Respiratory excursions symmetric, CTAB CV: RRR, no M/R/G ABD: Soft, NT/ND, BT present in all 4 quadrants, no organomegaly or masses EXTR: warm, well perfused, no C/C/E SKIN: warm and dry, no rash NEURO: Alert and oriented x 3, nonfocal Objective Labs Result Diagrams: 09/27/22 08:07 09/27/22 08:07 Labs: Laboratory Results - last 24 hr 09/27/22 09/27/22 09/27/22 08:07 08:07 08:07 WBC 3.0 L RBC 2.68 L Hgb 9.2 L Hct 27.4 L MCV 102.3 H MCH 34.5 H MCHC 33.8 RDW 15.6 H Plt Count 79 L Neut % (Auto) 63.4 Lymph % (Auto) 25.8 [place] % (Auto) 8.9 Eos % (Auto) 1.3 L Baso % (Auto) 0.6 Neut # (Auto) 1900 Lymph # (Auto) 800 L [place] # (Auto) 300 Eos # (Auto) 0 Baso # (Auto) 0 Sodium 136 L Potassium 4.6 Chloride 100 Carbon Dioxide 27 BUN 10 Creatinine 0.82 Estimated GFR > 60 BUN/Creatinine Ratio 12.2 Glucose 110 H Calcium 9.2 Magnesium 1.2 L Total Bilirubin 0.9 AST 293 H ALT 261 H Alkaline Phosphatase 118 Total Protein 7.1 Albumin 4.1 Globulin 3.0 Albumin/Globulin Ratio 1.4 PFSH Medical History Anal lesion Elevated ferritin GERD (gastroesophageal reflux disease) Gout HTN (hypertension) Hypercholesteremia Sleep apnea Surgical History History of appendectomy History of surgery (09/15/18) Hx of wisdom tooth extraction Family History Mother Hypertension Social History marital status: household members: none occupational status: employed Smoking Status: Never smoker alcohol intake: current substance use type: does not use Assessment & Plan Assessment & Plan narrative: Acute lower GI bleeding, secondary to focal anal excoriation in the setting of alcohol-induced thrombocytopenia Continues local wound care. No further rectal bleeding. Alcohol withdrawal Patient has previous history of seizures.? He drinks a 5th of vodka daily.? His last drink was 4 days prior to admission.? Continue CIWA protocol.? Continue multivitamin, thiamine, and lorazepam. His withdrawal scores overall have been lower. Acute alcoholic hepatitis Total bilirubin was 1.9, AST 351, ALT 340 on admission.? Minimally changed compared with yesterday, AST is actually slightly worse, bilirubin has normalized.? He has no abdominal discomfort on exam.? Will repeat labs tomorrow.? He does have leukopenia and thrombocytopenia consistent with his underlying alcohol dependence ? Hypo magnesemia Magnesium level is back down to 1.2 today. Continue replacement. AYDIN, resolved Creatinine was 1.71 on admission.? Creatinine has normalized to 0.82. No evidence of chronic kidney disease. Anxiety discussed options with the patient. Certainly benzodiazepines are not a good choice given his underlying alcohol dependence. He is previously been on Paxil when he was younger but had difficulty with withdrawal symptoms upon discontinuation. Did trial of Zoloft but did not feel right while taking it. He would prefer something he can take as needed. We did discuss gabapentin as an option which could help anxiety and reduce alcohol cravings but would be dose t.i.d.. Also discussed Seroquel for anxiety. He is receptive to a trial. Ordered 25-50 mg every 4 hours as needed. Will give 1 last single dose of lorazepam per his request and subsequently discontinue it. Chronic hypertension He is receiving amlodipine, 5 mg, lisinopril 40 mg and Toprol XL 50 mg twice daily here.? Blood pressures are normotensive.? Chronic hyperlipidemia Lipitor held in the setting of transaminitis Code status Full Prophylaxis Low Paco score Disposition Likely discharge home tomorrow. Time Spent With Patient Critical Care time: I spent a total of [] minutes of critical care time on this patient's care today; this time is exclusive of procedural time. Quality VTE Deep Vein Thrombosis/Pulmonary Embolism Present on Admission: No
[2022-09-27] MEDS: MAGNESIUM CHLORIDE 64 MG TABLET 128 MG PO ×2 (14:27→20:58)
[2022-09-27] MEDS: LORazepam 1 MG TABLET PO (14:27)
--- NOTE | 2022-09-27 14:30 | PC.NURSE ---
Pt having uneventful day. Denies discomfort. HL left wrist area intact/patent. New orders for Mg and Ativan per MD. Call light w/in reach, pt calls appropriately for needs, Continue w/plan of care.
[2022-09-27] MEDS: OXYCODONE IR 5 MG TABLET PO (15:25)
[2022-09-27] MEDS: QUETIAPINE 25 MG TABLET PO (21:00)
[2022-09-28 05:50] VITALS: BP 153/86; PULSE 72; RESP 18; TEMP 36.4; O2SAT 98
[2022-09-28 07:34] LABS: Add Manual Diff / Slide Review NO; Basophils Absolute Auto 0 /uL (0-100); Eosinophils Absolute Auto 0 /uL (0-450); Eosinophils Percent Auto 1.5 % (2-4); Hematocrit 28.1 % (41-53); Hemoglobin 9.5 g/dL (13.5-17.5); Lymphocytes Absolute Auto 800 /uL (1100-4500); Lymphocytes Percent Auto 26.8 % (25-40); Mean Corpuscular HGB Conc 33.7 % (30-36); Mean Corpuscular Hemoglobin 34.3 PG (26-34); Mean Corpuscular Volume 101.9 fL (80-100); Monocytes Absolute Auto 300 /uL (0-900); Monocytes Percent Auto 9.9 % (3-14); Neutrophils Absolute Auto 1900 /uL (1500-7000); Neutrophils Percent Auto 60.8 % (50-75); Platelet Count 74 X10^3/uL (150-400); Red Blood Cell Count 2.76 X10^6/uL (4.5-5.9); Red Cell Distribution Width 15.9 % (11.6-14.8); White Blood Cell Count 3.1 X10^3/uL (4.5-11.0)
[2022-09-28 07:41] LABS: Alanine Aminotransferase 281 IU/L (<50); Albumin 4.2 g/dL (3.5-5.0); Albumin Globulin Ratio 1.3 (1.0-2.8); Alkaline Phosphatase 114 U/L (38-126); Aspartate Aminotransferase 345 IU/L (17-59); BUN Creatinine Ratio 13.7 (6-22); Bilirubin Total 0.6 mg/dL (0.2-1.3); Blood Urea Nitrogen 10 mg/dL (9-20); Calcium 9.5 mg/dL (8.4-10.2); Carbon Dioxide 27 mmol/L (22-32); Chloride 101 mmol/L (98-107); Estimated Glomerular Filt Rate > 60 mL/min (>60); Globulin 3.2 g/dL (1.7-4.1); Glucose 116 mg/dL (70-100); HEMOLYSIS < 15 (0-50); Potassium 4.9 mmol/L (3.4-5.1); Sodium 136 mmol/L (137-145); Total Protein 7.4 g/dL (6.3-8.2)
[2022-09-28 09:38] VITALS: BP 139/80; PULSE 80
[2022-09-28] MEDS: AMLODIPINE 5 MG TABLET PO (09:38)
[2022-09-28] MEDS: FOLIC ACID 1 MG TABLET PO (09:38)
[2022-09-28] MEDS: THIAMINE 100 MG TABLET PO (09:38)
[2022-09-28] MEDS: METOPROLOL ER 50 MG TABLET PO (09:38)
[2022-09-28] MEDS: MAGNESIUM CHLORIDE 64 MG TABLET 128 MG PO (09:38)
[2022-09-28] MEDS: allopurinoL 300 MG TABLET PO (09:38)
[2022-09-28] MEDS: MULTIVITAMIN 1 TABLET 1 TAB PO (09:38)
[2022-09-28 09:40] VITALS: BP 139/80; PULSE 79; RESP 16; TEMP 36.6; O2SAT 100
--- NOTE | 2022-09-28 13:22 | PC.NURSE ---
Pt discharged home by taxi at 1315, escorted off floor in wheelchair, accompanied by hospital staff. IV removed, discharge teaching provided. All patient belongings left with patient.
--- NOTE | 2022-09-28 19:31 | P.DS_ITS ---
History of Present Illness History of Present Illness Chief complaint: Rectal Bleed Narrative: Per history and physical: jennifer Bullard is a 42-year-old male with past medical history of alcohol abuse of a 5th of vodka daily, hypertension, hyperlipidemia, sleep apnea with unknown CPAP compliance and intersphincteric fistula with associated perianal abscess in 2019 who presents with 3 days of hematochezia and in alcohol withdrawal.? Patient states his last drink of vodka was 3 days ago.? He also during that time dev eloped bright red bloody stools, no black stools.? He has never had bloody stools before.? He states it hurts to defecate.? Patient is struggled with alcoholism for several years while in the [place] [facility] and even through intense alcohol treatment through the [place] [facility] several years ago.? Has been in and out of a a.? He is interested in inpatient detox. In the ED patient's hemoglobin dropped from 11.5 to 10.7 over [address] Smith general surgery consulted for scope. Discharge Providers Provider Date of admission: 09/25/22 15:38 Discharge Date: 09/28/22 Primary care physician: Rayray José MD Consults: 09/25/22 02:47 Consult to [facility] [place] [facility] Associate Dean Of Women Urgent Comment: 09/25/22 14:17 Consult to Dietitian, Adult Routine Comment: Reason For Exam: alcohol withdrawal Consult to General Surgery Routine Comment: Consulting Provider: Radha Smith Reason for consultation: lower GIB Discharge provider: Eileen Ward MD Summary Hospital Course Discharge Diagnosis: Acute lower GI bleed, secondary to focal anal excoriation in the setting of alcohol-induced thrombocytopenia, resolved Alcohol withdrawal, resolved Alcohol dependence, chronic Acute alcohol induced hepatitis, improving Hypomagnesemia, repleting AYDIN, resolved Chronic anxiety Chronic hypertension Chronic hyperlipidemia Severe protein calorie malnutrition Hospital Course: Patient drinks a 5th of vodka daily and has done so for quite some time. He presented to the emergency department after having bouts of diarrhea and rectal bleeding. He underwent colonoscopy and was found have focal excoriation of the anus. It was felt that he had excessive bleeding as a consequence of his thrombocytopenia related to alcoholic liver disease. He did not require transfusion. Barrier cream was provided with good improvement. He was able to have a bowel movement prior to discharge without any bleeding. With regard to alcohol withdrawal, he was placed on the alcohol withdrawal p rotocol. It was requiring doses of IV lorazepam. He gradually improved and by the date of discharge not required any lorazepam for withdrawal symptoms in over 24 hours. He plans to follow up on an outpatient basis for resources to maintain his sobriety He was found to be hypomagnesemic, likely related to his severe protein calorie malnutrition and alcohol dependence. This was repleted and was continuing to be treated at discharge. His severe protein calorie malnutrition unfortunately does increase his risk for ongoing morbidity and mortality. He is encouraged to work on better nutrition at discharge and alcohol abstinence. He did have some AYDIN on admission that resolved with IV fluid hydration. This is likely related to his GI losses from diarrhea. Regard to his anxiety, he would previously taken SSRIs without much benefit. He did find benefit with lorazepam but due to his alcohol dependence I advised he should not be continued on a benzodiazepine as dependence risk remains high. He expressed understanding. We did a trial of Seroquel which he found to be quite helpful. At discharge she is given a prescription for 30 tablets and is encouraged to follow up with his primary care provider. Status at Discharge Cognitive/behavioral status at discharge: at baseline, oriented Exam Vital Signs (past 8 hours): Oxygen Delivery Method Room Air Oxygen Flow Rate 0 Narrative Exam Narrative: GEN:? Adult male, pleasant, Alert and oriented x 3, NAD HEENT:NC, Face symmetric CHEST: Respiratory excursions symmetric, CTAB CV: RRR, no M/R/G ABD: Soft, NT/ND, BT present in all 4 quadrants, no organomegaly or masses EXTR: warm, well perfused, no C/C/E SKIN: warm and dry, no rash NEURO: Alert and oriented x 3, nonfocal Objective Labs Result Diagrams: 09/28/22 07:10 09/28/22 07:10 Labs: Laboratory Results - last 24 hr 09/28/22 09/28/22 09/28/22 07:10 07:10 07:10 WBC 3.1 L RBC 2.76 L Hgb 9.5 L Hct 28.1 L MCV 101.9 H MCH 34.3 H MCHC 33.7 RDW 15.9 H Plt Count 74 L Neut % (Auto) 60.8 Lymph % (Auto) 26.8 [place] % (Auto) 9.9 Eos % (Auto) 1.5 L Baso % (Auto) 1.0 Neut # (Auto) 1900 Lymph # (Auto) 800 L [place] # (Auto) 300 Eos # (Auto) 0 Baso # (Auto) 0 Sodium 136 L Potassium 4.9 Chloride 101 Carbon Dioxide 27 BUN 10 Creatinine 0.73 Estimated GFR > 60 BUN/Creatinine Ratio 13.7 Glucose 116 H Calcium 9.5 Magnesium 1.0 L Total Bilirubin 0.6 AST 345 H ALT 281 H Alkaline Phosphatase 114 Total Protein 7.4 Albumin 4.2 Globulin 3.2 Albumin/Globulin Ratio 1.3 PFSH Medical History Anal lesion Elevated ferritin GERD (gastroesophageal reflux disease) Gout HTN (hypertension) Hypercholesteremia Sleep apnea Surgical History History of appendectomy History of surgery (09/15/18) Hx of wisdom tooth extraction Family History Mother Hypertension Social History marital status: household members: none occupational status: employed Smoking Status: Never smoker alcohol intake: current substance use type: does not use Discharge Plan Discharge Plan Patient Disposition: Home Provider Discharge Comment: Follow-up with outpatient resources to continue your path to sobriety. Use wet wipes after bowel movements until anal irritation resolved Follow-up with your PCP for ongoing mgmt of your anxiety Discharge orders & Medications Prescriptions: New quetiapine 25 mg Tablet 25 mg PO Q4H PRN (Reason: Anxiety) Qty: 30 0RF folic acid 1 mg Tablet 1 mg PO DAILY Qty: 30 0RF multivitamin with folic acid [Tab-A-Garima] 400 mcg Tablet 1 tab PO DAILY Qty: 30 0RF magnesium oxide 500 mg capsule 500 mg PO BID Qty: 14 0RF Continued lisinopril 40 mg PO DAILY amlodipine 2.5 mg tablet 5 mg PO DAILY metoprolol tartrate 50 mg PO DAILY atorvastatin 20 mg PO DAILY allopurinol 100 mg tablet 300 mg PO DAILY docusate sodium [Colace] 100 mg capsule 100 mg PO BID Qty: 40 0RF oxycodone 5 mg tablet 5 mg PO Q6H PRN (Reason: pain) Qty: 30 0RF Discontinued lorazepam [Ativan] 1 mg tablet 1 mg PO TID PRN (Reason: alcohol withdrawal) Qty: 12 0RF Rx Instructions: 1 tablet 3 times a day for 2 days, 1 tablet twice a day for 2 days, 1 tablet once a day for 2 days Follow up/Referrals: Rayray José DO [Primary Care Provider] - Diet/Activity/Treatments Diet: Regular Diet comment: Work on eating a well-balanced healthy diet Activity: As tolerated Visit Report/Discharge Packet Instructions: Quetiapine Discharge Data Primary Care Provider: Rayray José Attending Provider: Jared Paul VTE Deep Vein Thrombosis/Pulmonary Embolism Present on Admission: No
== END 2022-09-28 13:25 | disposition home or self-care (01) | DRG 604 ==
LOC: ED 14:35 → AC 18:18
PROVIDERS: Emergency Medicine; Surgery; Admitting Provider Student in an Organized Health Care Education/Training Program; Emergency Provider Emergency Medicine; PCP Student in an Organized Health Care Education/Training Program; Referring Provider Emergency Medicine; Visit Provider Student in an Organized Health Care Education/Training Program
PROC: 0DJD8ZZ Inspection of Lower Intestinal Tract, Via Natural or Artificial Opening Endoscopic (ICD-10-PCS; CPT 45378; principal; 2022-09-26 11:30)
DX: S30.817A Abrasion of anus, initial encounter (principal); E43 Unspecified severe protein-calorie malnutrition; K62.5 Hemorrhage of anus and rectum; F10.239 Alcohol dependence with withdrawal, unspecified; Z94.0 Kidney transplant status; N17.9 Acute kidney failure, unspecified; K70.10 Alcoholic hepatitis without ascites; E83.42 Hypomagnesemia; N18.9 Chronic kidney disease, unspecified; I12.9 Hypertensive chronic kidney disease with stage 1 through stage 4 chronic kidney disease, or unspecified chronic kidney disease; E78.5 Hyperlipidemia, unspecified; D69.59 Other secondary thrombocytopenia; F41.9 Anxiety disorder, unspecified; M10.9 Gout, unspecified; Y90.2 Blood alcohol level of 40-59 mg/100 ml; Z20.822 Contact with and (suspected) exposure to COVID-19; Z68.32 Body mass index [BMI] 32.0-32.9, adult
CPT/HCPCS: 36415; 45378; 74177; 80053; 80305; 80320; 80329; 81001; 83735; 84443; 85014; 85018; 85025; 85610; 86850; 86900; 86901; 87635; 93005; 93010; 96374; 96375; 99221; 99284; C9803; G0378; C9113; G0480; J2060; J2250; J2270; J2405; J2704; J3475